=== PATIENT | male | born 1985 ===

== ENCOUNTER 2016-12-22 07:42 | Emergency (ER) | payer MEDICARE, MEDICAID ==
[2016-12-22 07:49] VITALS: BMI 29.9
[2016-12-22 07:58] VITALS: RESP 18
--- NOTE | 2016-12-22 08:03 | ED PDOC ---
Arrival/HPI - General Chief Complaint: Psychiatric Evaluation Time Seen by Provider: 12/22/16 07:43 Historian: Patient - History of Present Illness Narrative History of Present Illness (Text): 12/22/16 08:00 31 year old male with a past medical history that includes schizophrenia presents to the emergency department with difficulty sleeping and noncompliance with medications as per mother. Patient is cooperative and denies any complaints. No suicidal ideation, homicidal ideation, visual or auditory hallucinations. Symptom Course: Unchanged Modifying Factors (Text): None Associated Symptoms (Text): None Past Medical History - Provider Review Nursing Documentation Reviewed: Yes - Infectious Disease Hx of Infectious Diseases: None - Cardiac Hx Hypertension: Yes - Pulmonary Hx Tuberculosis: No - Neurological HX Cerebrovascular Accident: No Hx Seizures: No - Hematological/Oncological Hx Cancer: No - Genitourinary/Gynecological Hx Sexually Transmitted Diseases: No - Psychiatric Hx Schizophrenia: Yes Hx Substance Use: No - Anesthesia Hx Anesthesia: No Hx Anesthesia Reactions: No Hx Malignant Hyperthermia: No Family/Social History - Physician Review Nursing Documentation Reviewed: Yes Family/Social History: Unknown Family HX Smoking Status: Never Smoked Hx Alcohol Use: No Hx Substance Use: No Allergies/Home Meds Allergies/Adverse Reactions: Allergies Penicillins Allergy (Mild, Verified 05/01/16 13:01) RASH Review of Systems - Physician Review All systems were reviewed & negative as marked: Yes - Review of Systems Respiratory: absent: SOB Cardiovascular: absent: Chest Pain Gastrointestinal: absent: Abdominal Pain Psychiatric: Other (Difficulty sleeping. No suicidal ideation, homicidal ideation, or visual/auditory hallucinations.). absent: Suicidal Ideation Physical Exam Vital Signs Reviewed: Yes Vital Signs Temp Pulse Resp BP Pulse Ox 12/22/16 09:53 98.3 F 90 18 126/73 97 12/22/16 07:57 98.0 F 89 18 130/75 96 Temperature: Afebrile Blood Pressure: Normal Pulse: Regular Respiratory Rate: Normal Appearance: Positive for: Well-Appearing, Non-Toxic, Comfortable Pain Distress: None Mental Status: Positive for: Alert and Oriented X 3 - Systems Exam Head: Present: Atraumatic, Normocephalic Pupils: Present: PERRL Extroacular Muscles: Present: EOMI Conjunctiva: Present: Normal Mouth: Present: Moist Mucous Membranes Neck: Present: Normal Range of Motion Respiratory/Chest: Present: Clear to Auscultation, Good Air Exchange. No: Respiratory Distress, Accessory Muscle Use Cardiovascular: Present: Regular Rate and Rhythm, Normal S1, S2. No: Murmurs Abdomen: Present: Normal Bowel Sounds. No: Tenderness, Distention, Peritoneal Signs Back: Present: Normal Inspection Upper Extremity: Present: Normal Inspection. No: Cyanosis, Edema Lower Extremity: Present: Normal Inspection. No: Edema Neurological: Present: GCS=15, CN II-XII Intact, Speech Normal Skin: Present: Warm, Dry, Normal Color. No: Rashes Psychiatric: Present: Alert, Oriented x 3, Normal Insight, Normal Concentration Medical Decision Making ED Course and Treatment: Impression: 31 year old male with a past medical history that includes schizophrenia presents to the emergency department with difficulty sleeping and noncompliance with medications as per mother. Plan: -- Medically clear for PES evaluation -- Reassess and disposition Progress Notes: 12/22/16 08:43 EKG shows NSR at 86 BPM, LVH. Interpreted by me. 12/22/16 11:27 Patient evaluated and cleared by PES. - Lab Interpretations Lab Results: 12/22/16 08:02 12/22/16 08:02 Lab Results 12/22/16 08:02: WBC 5.8, RBC 4.76, Hgb 14.2, Hct 41.8 L, MCV 87.8, MCH 29.8, MCHC 34.0, RDW 13.4, Plt Count 147, MPV 12.3 H, Gran % 65.5, Lymph % (Auto) 26.2 , [place] % (Auto) 7.5 H, Eos % (Auto) 0.3 L, Baso % (Auto) 0.5, Gran # 3.78, Lymph # 1.5, [place] # 0.4, Eos # 0.0, Baso # 0.03, Sodium 137, Potassium 4.0, Chloride 98, Carbon Dioxide 30, Anion Gap 13, BUN 14, Creatinine 0.9, Est GFR ( Amer) > 60, Est GFR (Non-Af Amer) > 60, Random Glucose 94, Calcium 9.3, Total Bilirubin 0.7, AST 27, ALT 21, Alkaline Phosphatase 65, Total Protein 8.4 H, Albumin 4.6, Globulin 3.8, Albumin/Globulin Ratio 1.2, Salicylates < 1 L, Acetaminophen < 10.0 L, Alcohol, Quantitative < 10 12/22/16 08:00: Urine Color Light yellow, Urine Appearance Clear, Urine pH 6.5, Ur Specific [place] 1.010, Urine Protein Negative, Urine Glucose (UA) Negative, Urine Ketones Negative, Urine Blood Negative, Urine Nitrate Negative, Urine Bilirubin Negative, Urine Urobilinogen 1.0 H, Ur Leukocyte Esterase Negative - RAD Interpretation Radiology Orders: 12/22/16 08:00 CHEST PORTABLE [RAD] Stat - EKG Interpretation Interpreted by ED Physician: Yes Type: 12 lead EKG - Scribe Statement The provider has reviewed the documentation as recorded by the Cailin Saunders Provider Scribe Attestation: All medical record entries made by the Cailin were at my direction and personally dictated by me. I have reviewed the chart and agree that the record accurately reflects my personal performance of the history, physical exam, medical decision making, and the department course for this patient. I have also personally directed, reviewed, and agree with the discharge instructions and disposition. Disposition/Present on Arrival - Present on Arrival Any Indicators Present on Arrival: No History of DVT/PE: No History of Uncontrolled Diabetes: No Urinary Catheter: No History of Decub. Ulcer: No History Surgical Site Infection Following: None - Disposition Have Diagnosis and Disposition been Completed?: Yes Diagnosis: Schizophrenia Disposition: HOME/ ROUTINE Disposition Time: 10:52 Patient Problems: Current Active Problems Problem Status Diagnosed Schizophrenia Acute Condition: STABLE Discharge Instructions (ExitCare): Psychiatric Hallucinations (ED) Additional Instructions: please see your doctor. return to er with worsening symptoms or concerns. Referrals: Thalia Maguire DO [Primary Care Provider] - Follow up with primary
[2016-12-22 08:10] LABS: ADD MANUAL DIFF? NO
[2016-12-22 08:13] LABS: BASO # 0.03 K/mm3 (0.0-2.0); BASO % 0.5 % (0.0-3.0); EOS % 0.3 % (1.5-5.0); GRAN # 3.78 (1.4-6.5); GRAN % 65.5 % (50.0-68.0); HEMATOCRIT 41.8 % (42.0-52.0); LYMPH # 1.5 (1.2-3.4); LYMPH % 26.2 % (22.0-35.0); MEAN CELL VOLUME 87.8 fL (80.0-105.0); MEAN CORPUSCULAR HEMOGLOBIN 29.8 pg (25.0-35.0); MEAN PLATELET VOLUME 12.3 fl (7.0-11.0); MONO # 0.4 (0.1-0.6); MONO % 7.5 % (1.0-6.0); PLATELET COUNT 147 10^3/uL (120.0-450.0); RED CELL DISTRIBUTION WIDTH 13.4 % (11.5-14.5); WHITE BLOOD COUNT 5.8 10^3/ul (4.5-11.0)
[2016-12-22 08:29] LABS: ALB/GLOB RATIO 1.2 (1.1-1.8); ALKALINE PHOSPHATASE 65 U/L (38-133); ALT/SGPT 21 U/L (7-56); AST/SGOT 27 U/L (15-59); BILIRUBIN,TOTAL 0.7 mg/dL (0.2-1.3); BLOOD UREA NITROGEN 14 mg/dL (7-21); CALCIUM 9.3 mg/dL (8.4-10.5); CARBON DIOXIDE 30 mmol/L (21-33); CHLORIDE 98 mmol/L (98-107); GFR AFRICAN-AMERICAN > 60; GLUCOSE,RANDOM 94 mg/dL (70-110); SODIUM 137 mmol/L (132-148); TOTAL PROTEIN 8.4 g/dL (5.8-8.3)
[2016-12-22 08:30] LABS: PH,URINE 6.5 (4.7-8.0); URINE BILIRUBIN NEGATIVE (NEGATIVE); URINE BLOOD NEGATIVE (NEGATIVE); URINE GLUCOSE (UA) NEGATIVE (NEGATIVE); URINE KETONE NEGATIVE (NEGATIVE); URINE LEUKOCYTE ESTERASE NEGATIVE Leu/uL (NEGATIVE); URINE PROTEIN NEGATIVE mg/dL (<30 mg/dL)
[2016-12-22 08:31] LABS: URINE APPEARANCE CLEAR (CLEAR); URINE COLOR LIGHT YELLOW (YELLOW)
--- NOTE | 2016-12-22 09:04 | RAD ---
HISTORY: pysch COMPARISON: 04/23/2016 FINDINGS: LUNGS: No active pulmonary disease. PLEURA: No significant pleural effusion identified, no pneumothorax apparent. CARDIOVASCULAR: Normal. OSSEOUS STRUCTURES: No significant abnormalities. VISUALIZED UPPER ABDOMEN: Normal. OTHER FINDINGS: None. IMPRESSION: No active disease.
[2016-12-22 09:54] VITALS: TEMP 98.3
[2016-12-22 11:39] VITALS: BP 125/70; PULSE 85; O2SAT 99
--- NOTE | 2016-12-23 09:27 | CARD ---
APPROVED REPORT EKG Measurement Heart [id number] <Conclusion> Normal sinus rhythm with sinus arrhythmia Left ventricular hypertrophy Leftward axis No change
== END 2016-12-22 11:42 | disposition home or self-care (01) ==
LOC: ED 07:42
DX: F20.9 Schizophrenia, unspecified (principal); I10 Essential (primary) hypertension; Z88.0 Allergy status to penicillin
CPT/HCPCS: 71010; 80053; 81003; 85025; 93005; 99283; G0480

== ENCOUNTER 2017-01-06 01:49 | Inpatient (IN) | payer MEDICARE, MEDICAID ==
[2017-01-06 01:49] VITALS: BMI 29.9
--- NOTE | 2017-01-06 03:18 | ED PDOC ---
Arrival/HPI - General Chief Complaint: Psychiatric Evaluation Time Seen by Provider: 01/06/17 02:33 Historian: Patient - History of Present Illness Narrative History of Present Illness (Text): 01/06/17 03:08 31 year old male whose past medical history includes bipolar disorder and paranoid schizophrenia presents to the Emergency department [facility] for psychiatric evaluation. Patient's mother states he has 50mg risperdal injections per week. She reports he has been accusing her of changing his skin and switching out his penis and staring at the mirror while talking with tangential speech. Patient also notes difficulty sleeping. She states he was seen in the Emergency department 2 weeks ago for similar symptoms. He denies any suicidal ideation, homicidal ideation, or hallucinations. Denies any somatic complaints. Time/Duration: < month Symptom Onset: Gradual Symptom Course: Unchanged Activities at Onset: Rest Past Medical History - Provider Review Nursing Documentation Reviewed: Yes - Infectious Disease Hx of Infectious Diseases: None - Cardiac Hx Hypertension: Yes - Pulmonary Hx Tuberculosis: No - Neurological HX Cerebrovascular Accident: No Hx Seizures: No - Hematological/Oncological Hx Cancer: No - Genitourinary/Gynecological Hx Sexually Transmitted Diseases: No - Psychiatric Hx Schizophrenia: Yes Hx Substance Use: No - Anesthesia Hx Anesthesia: No Hx Anesthesia Reactions: No Hx Malignant Hyperthermia: No Family/Social History - Physician Review Nursing Documentation Reviewed: Yes Family/Social History: Unknown Family HX Smoking Status: Never Smoked Hx Alcohol Use: No Hx Substance Use: No Allergies/Home Meds Allergies/Adverse Reactions: Allergies Penicillins Allergy (Mild, Verified 01/06/17 02:15) RASH Review of Systems - Physician Review All systems were reviewed & negative as marked: Yes - Review of Systems Constitutional: absent: Fevers Respiratory: absent: SOB Cardiovascular: absent: Chest Pain Psychiatric: Other (+psychiatric evaluation; +difficulty sleeping; no SI/HI, no hallucinations). absent: Suicidal Ideation Physical Exam Vital Signs Reviewed: Yes Vital Signs Pulse Resp BP Pulse Ox 01/06/17 06:57 77 17 128/81 97 01/06/17 05:00 80 14 121/70 98 01/06/17 03:49 76 16 122/72 97 Temperature: Afebrile Blood Pressure: Normal Pulse: Regular Respiratory Rate: Normal Appearance: Positive for: Well-Appearing, Non-Toxic, Comfortable Pain Distress: None Mental Status: Positive for: Alert and Oriented X 3 - Systems Exam Head: Present: Atraumatic, Normocephalic Pupils: Present: PERRL Extroacular Muscles: Present: EOMI Conjunctiva: Present: Normal Mouth: Present: Moist Mucous Membranes Neck: Present: Normal Range of Motion Respiratory/Chest: Present: Clear to Auscultation, Good Air Exchange. No: Respiratory Distress, Accessory Muscle Use, Wheezes, Rales, Rhonchi Cardiovascular: Present: Regular Rate and Rhythm, Normal S1, S2. No: Murmurs, Rub, Gallop Abdomen: Present: Normal Bowel Sounds. No: Tenderness, Distention, Peritoneal Signs, Rebound, Guarding Back: Present: Normal Inspection Upper Extremity: Present: Normal Inspection. No: Cyanosis, Edema Lower Extremity: Present: Normal Inspection. No: Edema Neurological: Present: GCS=15, CN II-XII Intact, Speech Normal Skin: Present: Warm, Dry, Normal Color. No: Rashes Psychiatric: Present: Alert, Oriented x 3, Normal Insight, Normal Concentration Medical Decision Making ED Course and Treatment: 01/06/17 03:27 Impression: 31 year old male presents for psychiatric evaluation. Physical exam unremarkable. Plan: --EKG --Chest X-ray --Urinalysis --Labs -- Reassess and disposition Prior Visits: Notes and results from previous visits were reviewed. Progress Notes: 01/06/17 04:17 EKG: Ordered, reviewed, and independently interpreted the EKG. Rate : 63 BPM Rhythm : NSR Interpretation : minimal voltage for LVH, no acute changes 01/06/17 05:11 Chest X-ray Impression: negative, read by me 01/06/17 05:[address] Smart who accepts patient to her service. Dr. Marks on consult. - Lab Interpretations Lab Results: 01/06/17 03:35 01/06/17 03:35 Lab Results 01/06/17 04:05: Urine Color yellow, Urine Appearance Clear, Urine pH 6.0, Ur Specific [place] >= 1.030, Urine Protein Negative, Urine Glucose (UA) Negative, Urine Ketones Trace H, Urine Blood Negative, Urine Nitrate Negative, Urine Bilirubin Negative, Urine Urobilinogen 0.2, Ur Leukocyte Esterase Negative, Urine Opiates Screen Negative, Urine Methadone Screen Negative, Ur Barbiturates Screen Negative, Ur Phencyclidine Scrn Negative, Ur Amphetamines Screen Negative , U Benzodiazepines Scrn Negative, U Oth Cocaine Metabols Negative, U Cannabinoids Screen Negative 01/06/17 03:35: WBC 7.0 D, RBC 4.73, Hgb 13.8 L, Hct 41.7 L, MCV 88.2, MCH 29.2 , MCHC 33.1, RDW 13.4, Plt Count 122, MPV 13.1 H, Gran % 65.4, Lymph % (Auto) 26.8, [place] % (Auto) 7.2 H, Eos % (Auto) 0.3 L, Baso % (Auto) 0.3, Gran # 4.60, Lymph # 1.9, [place] # 0.5, Eos # 0.0, Baso # 0.02, Sodium 139, Potassium 3.7, Chloride 99, Carbon Dioxide 30, Anion Gap 14, BUN 12, Creatinine 0.9, Est GFR ( Amer) > 60, Est GFR (Non-Af Amer) > 60, Random Glucose 86, Calcium 8.9, Total Bilirubin 0.5, AST 24, ALT 14, Alkaline Phosphatase 65, Total Protein 8.5 H, Albumin 4.5, Globulin 3.9, Albumin/Globulin Ratio 1.2, Alcohol, Quantitative < 10 I have reviewed the lab results: Yes - RAD Interpretation Radiology Orders: 01/06/17 02:58 CHEST PORTABLE [RAD] Stat - Transfer of Care Patient signed out to Dr:: Kulwant Other: PES evaluation/reassess/final disposition - Scribe Statement The provider has reviewed the documentation as recorded by the Scribe Antonia Ruiz Provider Scribe Attestation: All medical record entries made by the Scribe were at my direction and personally dictated by me. I have reviewed the chart and agree that the record accurately reflects my personal performance of the history, physical exam, medical decision making, and the department course for this patient. I have also personally directed, reviewed, and agree with the discharge instructions and disposition. Disposition/Present on Arrival - Present on Arrival Any Indicators Present on Arrival: No History of DVT/PE: No History of Uncontrolled Diabetes: No Urinary Catheter: No History of Decub. Ulcer: No History Surgical Site Infection Following: None - Disposition Have Diagnosis and Disposition been Completed?: No Diagnosis: Schizophrenia Disposition Time: 07:03 Condition: STABLE
[2017-01-06 03:44] LABS: ADD MANUAL DIFF? NO
[2017-01-06 04:06] LABS: GRAN % 65.4 % (50.0-68.0); HEMATOCRIT 41.7 % (42.0-52.0); MEAN CELL VOLUME 88.2 fL (80.0-105.0); MEAN CORPUSCULAR HEMOGLOBIN 29.2 pg (25.0-35.0); MEAN CORPUSCULAR HGB CONC 33.1 g/dl (31.0-37.0); MEAN PLATELET VOLUME 13.1 fl (7.0-11.0); PLATELET COUNT 122 10^3/uL (120.0-450.0); RED CELL DISTRIBUTION WIDTH 13.4 % (11.5-14.5)
[2017-01-06 04:07] LABS: BASO # 0.02 K/mm3 (0.0-2.0); BASO % 0.3 % (0.0-3.0); EOS % 0.3 % (1.5-5.0); LYMPH # 1.9 (1.2-3.4); LYMPH % 26.8 % (22.0-35.0); MONO # 0.5 (0.1-0.6); MONO % 7.2 % (1.0-6.0)
[2017-01-06 04:16] LABS: ALB/GLOB RATIO 1.2 (1.1-1.8); ALKALINE PHOSPHATASE 65 U/L (38-133); ALT/SGPT 14 U/L (7-56); AST/SGOT 24 U/L (15-59); BILIRUBIN,TOTAL 0.5 mg/dL (0.2-1.3); BLOOD UREA NITROGEN 12 mg/dL (7-21); CALCIUM 8.9 mg/dL (8.4-10.5); CARBON DIOXIDE 30 mmol/L (21-33); CHLORIDE 99 mmol/L (98-107); GFR AFRICAN-AMERICAN > 60; GLUCOSE,RANDOM 86 mg/dL (70-110); POTASSIUM 3.7 mmol/L (3.6-5.0); SODIUM 139 mmol/L (132-148); TOTAL PROTEIN 8.5 g/dL (5.8-8.3)
[2017-01-06 04:21] LABS: URINE BILIRUBIN NEGATIVE (NEGATIVE); URINE BLOOD NEGATIVE (NEGATIVE); URINE GLUCOSE (UA) NEGATIVE (NEGATIVE); URINE KETONE TRACE mg/dL (NEGATIVE); URINE LEUKOCYTE ESTERASE NEGATIVE Leu/uL (NEGATIVE); URINE UROBILINOGEN 0.2 E.U./dL (<1 E.U./dL)
[2017-01-06 04:25] LABS: URINE APPEARANCE CLEAR (CLEAR); URINE PROTEIN NEGATIVE mg/dL (<30 mg/dL)
--- NOTE | 2017-01-06 07:11 | ED PDOC ---
Physical Exam Vital Signs Pulse Resp BP Pulse Ox 01/06/17 06:57 77 17 128/81 97 01/06/17 05:00 80 14 121/70 98 01/06/17 03:49 76 16 122/72 97 Medical Decision Making ED Course and Treatment: 01/06/17 07:00 Patient signed out to me by Dr. Coleman pending PES evaluation, reassessment , and final disposition. 01/06/17 08:08 pt accepted to pes. - Lab Interpretations Lab Results: 01/06/17 03:35 01/06/17 03:35 Lab Results 01/06/17 04:05: Urine Color yellow, Urine Appearance Clear, Urine pH 6.0, Ur Specific [place] >= 1.030, Urine Protein Negative, Urine Glucose (UA) Negative, Urine Ketones Trace H, Urine Blood Negative, Urine Nitrate Negative, Urine Bilirubin Negative, Urine Urobilinogen 0.2, Ur Leukocyte Esterase Negative, Urine Opiates Screen Negative, Urine Methadone Screen Negative, Ur Barbiturates Screen Negative, Ur Phencyclidine Scrn Negative, Ur Amphetamines Screen Negative , U Benzodiazepines Scrn Negative, U Oth Cocaine Metabols Negative, U Cannabinoids Screen Negative 01/06/17 03:35: WBC 7.0 D, RBC 4.73, Hgb 13.8 L, Hct 41.7 L, MCV 88.2, MCH 29.2 , MCHC 33.1, RDW 13.4, Plt Count 122, MPV 13.1 H, Gran % 65.4, Lymph % (Auto) 26.8, [place] % (Auto) 7.2 H, Eos % (Auto) 0.3 L, Baso % (Auto) 0.3, Gran # 4.60, Lymph # 1.9, [place] # 0.5, Eos # 0.0, Baso # 0.02, Sodium 139, Potassium 3.7, Chloride 99, Carbon Dioxide 30, Anion Gap 14, BUN 12, Creatinine 0.9, Est GFR ( Amer) > 60, Est GFR (Non-Af Amer) > 60, Random Glucose 86, Calcium 8.9, Total Bilirubin 0.5, AST 24, ALT 14, Alkaline Phosphatase 65, Total Protein 8.5 H, Albumin 4.5, Globulin 3.9, Albumin/Globulin Ratio 1.2, Alcohol, Quantitative < 10 - RAD Interpretation Radiology Orders: 01/06/17 02:58 CHEST PORTABLE [RAD] Stat Disposition/Present on Arrival - Present on Arrival Any Indicators Present on Arrival: No History of DVT/PE: No History of Uncontrolled Diabetes: No Urinary Catheter: No History of Decub. Ulcer: No History Surgical Site Infection Following: None - Disposition Have Diagnosis and Disposition been Completed?: Yes Diagnosis: Schizophrenia Disposition: HOSPITALIZED Disposition Time: 08:08 Patient Problems: Current Active Problems Problem Status Diagnosed Schizophrenia Acute Condition: STABLE
[2017-01-06] MEDS ORDERED: Alum-Mag Hydrox-Simethicone Susp (30 mL) PO PRN (11:22)
[2017-01-06] MEDS ORDERED: Magnesium Hydroxide Susp 30 ml UD PO PRN (11:22)
[2017-01-06 12:18] VITALS: O2SAT 93
--- NOTE | 2017-01-06 12:45 | CARD ---
APPROVED REPORT EKG Measurement Heart [id number] <Conclusion> Normal sinus rhythm Minimal voltage criteria for LVH, may be normal variant Borderline ECG
--- NOTE | 2017-01-06 13:11 | RAD ---
HISTORY: medical clearance COMPARISON: No prior. FINDINGS: LUNGS: No active pulmonary disease. PLEURA: No significant pleural effusion identified, no pneumothorax apparent. CARDIOVASCULAR: Normal. OSSEOUS STRUCTURES: No significant abnormalities. VISUALIZED UPPER ABDOMEN: Normal. OTHER FINDINGS: None. IMPRESSION: No active disease.
[2017-01-07 08:25] LABS: ADD MANUAL DIFF? NO
[2017-01-07 08:30] LABS: BASO # 0.02 K/mm3 (0.0-2.0); BASO % 0.4 % (0.0-3.0); EOS % 0.2 % (1.5-5.0); GRAN # 2.74 (1.4-6.5); GRAN % 56.8 % (50.0-68.0); LYMPH # 1.7 (1.2-3.4); LYMPH % 35.6 % (22.0-35.0); MEAN CELL VOLUME 87.2 fL (80.0-105.0); MEAN CORPUSCULAR HEMOGLOBIN 29.4 pg (25.0-35.0); MEAN CORPUSCULAR HGB CONC 33.7 g/dl (31.0-37.0); MEAN PLATELET VOLUME 12.3 fl (7.0-11.0); MONO # 0.3 (0.1-0.6); PLATELET COUNT 145 10^3/uL (120.0-450.0); WHITE BLOOD COUNT 4.8 10^3/ul (4.5-11.0)
[2017-01-07 08:42] LABS: ALB/GLOB RATIO 1.3 (1.1-1.8); ALKALINE PHOSPHATASE 53 U/L (38-133); ALT/SGPT 23 U/L (7-56); AST/SGOT 29 U/L (15-59); BILIRUBIN,TOTAL 0.8 mg/dL (0.2-1.3); BLOOD UREA NITROGEN 10 mg/dL (7-21); CALCIUM 9.2 mg/dL (8.4-10.5); CARBON DIOXIDE 29 mmol/L (21-33); CHLORIDE 100 mmol/L (98-107); CHOLESTEROL 136 mg/dL (130-200); GFR AFRICAN-AMERICAN > 60; GLUCOSE,RANDOM 87 mg/dL (70-110); POTASSIUM 3.7 mmol/L (3.6-5.0); SODIUM 138 mmol/L (132-148)
[2017-01-07 08:57] LABS: FREE T4 0.92 ng/dL (0.78-2.19)
[2017-01-07 09:11] LABS: THYROID STIMULATING HORMONE 3.36 mIU/mL (0.46-4.68)
--- NOTE | 2017-01-07 09:29 | PCM.PSYCH ---
Initial Psychiatric Evaluation - Initial Psychiatric Evaluation Type of Admission: Voluntary Legal Status: Capacity History of Present Illness and Precipitating Events: Patient is a 31 yo male with hx of Paranoid Schizophrenia, catatonic behaviors, multiple psychiatric admissions, current f/u at [facility] where he is compliant with Risperdal Consta 50 mg IM q2 weeks who was BIBA for a psychiatric evaluation. Review of ER records indicate that mother reported that patient has been delusional with poor sleep. Patient accused mother of "changing his skin and switching out his penis". Apparently he was seen in this ER on 12/22/16 with symptoms of noncompliance and difficulty sleeping and discharged to f/u with psychiatric provider. I reviewed recent notes and met with patient at bedside. Patient is superficially cooperative and with fair focus and intermittent eye contact. I agree with staff notes, patient does exhibit some thought blocking and speech latency with his responses. Presently patient denies any major concerns including depression and anxiety. He states that he "doesn't feel paranoid". Regarding stressors he points to his groin area, indicating concern about his genitals. He cannot elaborate in a logical manner about this concern. He appears guarded. Patient denies any hallucinations and he is not observed to be responding to internal stimuli during our meeting. Affect is flat and oddly- related. Thus far he is tolerating his current medications and reports that he slept fairly well last night. He denies any new discomfort or pain. Insight and judgment are considered poor at this time. He has been in fair behavioral control and there were no management issues overnight . PSYCHIATRIC HISTORY 2 admissions at [facility] (03/13/16/-03/23/16 & 04/24/16-05/05/16) Discharged 05/05/16 on following medications: Risperdal consta 50mg im [id number], risperdal 2mg po bid for psychosis, ativan 2mg po bid for catatonia, ambien 5mg hs for insomnia Patient follows up at [facility] and reports that he follows up with Dr. De Leon. He receives the Risperdal Consta injection 50 mg q2 weeks. Most recent injection was on December 26. Social history Patient was born and raised in the [place] until he was 12 years old. Thereafter he was raised in the [place]. Patient is single and does not have children. He resides with his mother. Patient reports that he did not graduate high school. He went as far as 11th grade. He is unemployed. Patient denies any drug or alcohol issues. Denies tobacco use and denies any history of legal issues. Current Medications: Active Medications Generic Name Dose Route Start Last Admin Trade Name Freq PRN Reason Stop Dose Admin Acetaminophen 650 mg 01/06/17 11:22 Tylenol 325mg Tab PO Q4H PRN Pain, moderate (4-7) Al Hydrox/Mg Hydrox/Simethicone 30 ml 01/06/17 11:22 Maalox Plus 30 Ml PO DAILY PRN Indigestion / Heartburn Magnesium Hydroxide 30 ml 01/06/17 11:22 Milk Of Magnesia PO DAILY PRN Constipation Zaleplon 10 mg 01/06/17 11:39 Sonata PO HS PRN Insomnia Past Psychiatric History - Past Psychiatric History Pertinent Medical Hx (Current Medical&Sleep Prob, Allergies): Allergies Allergy/AdvReac Type Severity Reaction Status Date / Time Penicillins Allergy Mild RASH Verified 01/06/17 02:15 Atorvastatin [Lipitor] 40 mg PO DIN #0 tab 05/05/16 Cholecalciferol [Vitamin D 1000 IU] 2,000 iu PO DAILY #0 tab 05/05/16 LORazepam [Ativan] 2 mg PO BID #0 tab 05/05/16 Propranolol [Inderal] 10 mg PO HS #0 tab 05/05/16 Risperidone [RisperDAL Consta] 50 mg IM Q2W #1 syr 05/05/16 Zolpidem [Ambien] 5 mg PO HS PRN #0 tab 05/05/16 risperiDONE [RisperDAL Tab] 2 mg PO AMHS #0 tab 05/05/16 Mental Status Examination - Personal Presentation Personal Presentation: Looks stated age - Affect Affect: Constricted - Motor Activity Motor Activity: Calm - Reliability in Providing Information Reliability in Providing Information: Fair - Formal Thought Process Formal Thought Process: Delusions, Paranoia, Loosening of associations, Other ( thought blocking) - Obsessions/Compulsions Obsessions: No Compulsions: No - Cognitive Functions Orientation: Person, Place, Situation Sensorium: Alert Estimate of Intelligence: Average Judgement: Imparied, as evidence by: Poor judgement, Imparied, as evidence by: Lack of insight into illness - Risk Risk: Diminished functioning DSM 5 DX - DSM 5 DSM 5 Diagnosis: Paranoid Schizophrenia - Recommended/Plan of Treatment Treatment Recommendations and Plan of Treatment: * group, milieu and supportive tx * Risperdal Consta 50 mg IM due January 09, 2017 * Started Ativan 1 mg po AMHS to aid with catatonia/thought blocking * c/w Sonata 10 mg HS prn: insomnia * Awaiting medical consult * Vitals reviewed and noted below: Selected Entries 01/06/17 01/06/17 07:42 10:00 Temperature 98.1 F 98.1 F Pulse Rate 72 79 Respiratory 18 22 Rate Blood Pressure 125/76 124/79 FLOOR LABS NOTED BELOW Laboratory Results - last 24 hr 01/07/17 08:23 WBC 4.8 D RBC 4.93 Hgb 14.5 Hct 43.0 MCV 87.2 MCH 29.4 MCHC 33.7 RDW 13.0 Plt Count 145 MPV 12.3 H Gran % 56.8 Lymph % (Auto) 35.6 H [place] % (Auto) 7.0 H Eos % (Auto) 0.2 L Baso % (Auto) 0.4 Gran # 2.74 Lymph # 1.7 [place] # 0.3 Eos # 0.0 Baso # 0.02 Sodium 138 Potassium 3.7 Chloride 100 Carbon Dioxide 29 Anion Gap 13 BUN 10 Creatinine 0.8 Est GFR ( Amer) > 60 Est GFR (Non-Af Amer) > 60 Random Glucose 87 Calcium 9.2 Total Bilirubin 0.8 AST 29 ALT 23 Alkaline Phosphatase 53 Total Protein 8.0 Albumin 4.5 Globulin 3.5 Albumin/Globulin Ratio 1.3 Triglycerides 68 Cholesterol 136 LDL Cholesterol Direct 74 HDL Cholesterol 41 Free T4 0.92 TSH 3rd Generation 3.36 ER LABS AND STUDIES 01/06/17 04:05: Urine Color yellow, Urine Appearance Clear, Urine pH 6.0, Ur Specific [place] >= 1.030, Urine Protein Negative, Urine Glucose (UA) Negative, Urine Ketones Trace H, Urine Blood Negative, Urine Nitrate Negative, Urine Bilirubin Negative, Urine Urobilinogen 0.2, Ur Leukocyte Esterase Negative, Urine Opiates Screen Negative, Urine Methadone Screen Negative, Ur Barbiturates Screen Negative, Ur Phencyclidine Scrn Negative, Ur Amphetamines Screen Negative , U Benzodiazepines Scrn Negative, U Oth Cocaine Metabols Negative, U Cannabinoids Screen Negative 01/06/17 03:35: WBC 7.0 D, RBC 4.73, Hgb 13.8 L, Hct 41.7 L, MCV 88.2, MCH 29.2 , MCHC 33.1, RDW 13.4, Plt Count 122, MPV 13.1 H, Gran % 65.4, Lymph % (Auto) 26.8, [place] % (Auto) 7.2 H, Eos % (Auto) 0.3 L, Baso % (Auto) 0.3, Gran # 4.60, Lymph # 1.9, [place] # 0.5, Eos # 0.0, Baso # 0.02, Sodium 139, Potassium 3.7, Chloride 99, Carbon Dioxide 30, Anion Gap 14, BUN 12, Creatinine 0.9, Est GFR ( Amer) > 60, Est GFR (Non-Af Amer) > 60, Random Glucose 86, Calcium 8.9, Total Bilirubin 0.5, AST 24, ALT 14, Alkaline Phosphatase 65, Total Protein 8.5 H, Albumin 4.5, Globulin 3.9, Albumin/Globulin Ratio 1.2, Alcohol, Quantitative < 10 01/06/17 04:17 EKG: Ordered, reviewed, and independently interpreted the EKG. Rate : 63 BPM Rhythm : NSR Interpretation : minimal voltage for LVH, no acute changes 01/06/17 05:11 Chest X-ray Impression: negative - Smoking Cessation Smoking Cessation Initiated: No Reason for not providing: PATIENT IS NOT A TOBACCO USER
--- NOTE | 2017-01-07 21:52 | CON ---
DATE: 01/07/2017 CHIEF COMPLAINT: Psych evaluation and toenail infection. HISTORY OF PRESENT ILLNESS: The patient is a 31-year-old male with past medical history of bipolar and paranoid schizophrenia. Came to the Emergency Room for psych evaluation. The patient's mother states that he had 50 mg respirdal injection about a week. She reports that he has been accusing her of changing his skin and switching out his penis and starting loud while talking . The patient also noticed difficulty in sleeping. She states that he has been in the Emergency Room 2 weeks ago for similar complaints. He denies any suicidal or homicidal ideation, hallucination. Denies any symmetrical complaints but having fungus on the toenails. PAST MEDICAL HISTORY: Hypertension, insomnia, schizophrenia. ALLERGIES: THE PATIENT IS ALLERGIC WITH PENICILLIN. FAMILY HISTORY: Father and mother noncontributory, schizophrenia. HABITS: Never smoked, no drugs, no ethanol. MEDICATIONS: Reviewed by me. REVIEW OF SYSTEMS: The patient was seen and examined in his room in the presence of a nurseBrian. Feeling comfortable except complaining about fungus on the toenails. According to him, he was taking medicine. No fever, no chills. No nausea, vomiting, diarrhea. No hematuria or hematochezia. No swelling of the leg. No chest pain, no palpitation. PHYSICAL EXAMINATION: VITAL SIGNS: Temperature 98.1, pulse 57, blood pressure 117/76, respiratory rate 22. HEENT: Head normocephalic, atraumatic. Eyes PERRLA. Extraocular muscles intact. Conjunctivae pink. Eyelids unremarkable. Nose patent. Mucous membranes moist. NECK: Supple. No carotid bruits. No JVD or thyromegaly. CHEST: Bilaterally symmetrical. HEART: S1, S2 positive. LUNGS: Clear to auscultation. ABDOMEN: Soft. Bowel sounds present. No organomegaly. EXTREMITIES: No edema, no cyanosis. Toenails are white. NEUROLOGIC: The patient is awake, alert, moving all 4 extremities. No focal deficits. LABORATORY DATA: White blood cells noted , hemoglobin 14.5, hematocrit 43.0, platelets 145. Sodium 138, potassium 3.7, BUN 10, creatinine 0.8, glucose 87. TSH 3.36. Urine has trace of ketones. RPR negative. Blood screening is negative. ASSESSMENT AND PLAN: The patient is a 31-year-old male with history of anemia, got better; ketonuria, hypertension, tinea pedis, history of schizophrenia. Is seen on psych department. Podiatry consult called for patient's tinea pedis. Gastrointestinal and deep vein thrombosis prophylaxis. Chest x-ray negative. EKG, heart rate 63 BPM, NSR, minimal voltage of left ventricular hypertrophy with no acute changes. We will follow up. Nesha Smart MD cc: [id number] TT: 01/07/2017 21:52:23 Confirmation # [id number] Dictation # [id number]
--- NOTE | 2017-01-08 16:03 | CP.PCM.CON ---
<Jon Benton - Last Filed: 01/08/17 15:56> History of Present Illness - History of Present Illness History of Present Illness: 31 year old male patient with PMHx of paranoid schizophrenia was seen at bedside this afternoon after request for podiatry consultation. Patient presents with mycotic toenail to Left hallux. Patient states that he has been treated for the fungal nail by Dr. Maguire, his PMD. He states that the mycotic nail was noticed months ago and he is taking terbinafine at home prescribed by her PMD. Patient denies of any pain to the Left hallux or any other pedal complaints. Patient denies of any N/V/F/C/ or SOB today Past Patient History - Infectious Disease Hx of Infectious Diseases: None - Past Social History Smoking Status: Never Smoked - CARDIAC Hx Cardiac Disorders: No Hx Hypertension: No (patient and mother deny) - PULMONARY Hx Respiratory Disorders: No Hx Tuberculosis: No - NEUROLOGICAL Hx Neurological Disorder: No HX Cerebrovascular Accident: No Hx Seizures: No - HEENT Hx HEENT Problems: No - RENAL Hx Chronic Kidney Disease: No - ENDOCRINE/METABOLIC Hx Endocrine Disorders: No - HEMATOLOGICAL/ONCOLOGICAL Hx Blood Disorders: No Hx Cancer: No Hx Human Immunodeficiency Virus (HIV): No - INTEGUMENTARY Hx Dermatological Problems: No Other/Comment: Patient c/o fungal infection in right big toe and being treated with Terbinafine (both patient and mother confirmed). 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 - PSYCHIATRIC Hx Schizophrenia: Yes Hx Substance Use: No - SURGICAL HISTORY Hx Surgeries: No - ANESTHESIA Hx Anesthesia: No Hx Anesthesia Reactions: No Hx Malignant Hyperthermia: No Meds Allergies/Adverse Reactions: Allergies Allergy/AdvReac Type Severity Reaction Status Date / Time Penicillins Allergy Mild RASH Verified 01/08/17 00:13 - Medications Medications: Current Medications Acetaminophen (Tylenol 325mg Tab) 650 mg PO Q4H PRN PRN Reason: Pain, moderate (4-7) Al Hydrox/Mg Hydrox/Simethicone (Maalox Plus 30 Ml) 30 ml PO DAILY PRN PRN Reason: Indigestion / Heartburn Famotidine (Pepcid) 40 mg PO HS RIO Last Admin: 01/07/17 22:00 Dose: Not Given Lorazepam (Ativan) 1 mg PO AMHS RIO PRN Reason: Protocol Last Admin: 01/08/17 09:08 Dose: 1 mg Magnesium Hydroxide (Milk Of Magnesia) 30 ml PO DAILY PRN PRN Reason: Constipation Risperidone (Risperdal Tab) 0.5 mg PO AMHS RIO PRN Reason: Protocol Trazodone HCl (Desyrel) 50 mg PO HS [facility] Physical Exam - Constitutional Appears: Well, Non-toxic, No Acute Distress - Extremities Exam Additional comments: Bilateral lower extremities exam DERM: No open wound noted to bilateral lower extremities. Thickened, mycotic toenail noted to Left hallux nail. (x1) No erythema noted. No drainage, no clinical sign of acute infection is noted. VASC: Palpable DP and PT noted bilaterally 2/4, WAGE CONCILIATOR less than 3 seconds noted to all digits NEURO: Gross sensation intact b/l lower extremities ORTHO: No pain on palpation to joints distal do ankle joint. ROM to ankle, 1st MPJ joints appears to be within normal range. - Neurological Exam Neurological exam: Alert, Oriented x3 - Psychiatric Exam Psychiatric exam: Normal Affect, Normal Mood - Skin Skin Exam: Normal Color, Warm Results - Vital Signs Recent Vital Signs: Last Vital Signs Temp 98.0 F 01/08/17 07:59 Pulse 64 01/08/17 07:59 Resp 20 01/08/17 07:59 BP 119/70 01/08/17 07:59 Pulse Ox 93 L 01/06/17 10:00 - Labs Result Diagrams: 01/07/17 08:23 01/07/17 08:23 Labs: Laboratory Results - last 24 hr 01/07/17 08:23 Hemoglobin A1c 5.1 RPR Nonreactive Assessment & Plan - Assessment and Plan (Free Text) Assessment: 31 year old male patient presents with fungal toenail to Left hallux toenail, being treated by her PMD with oral medication Plan: Patient was seen, evaluated at bedside Psych labs and vitals reviewed discussed with attending Dr. Soliz Patient on Terbinafine PO 250mg Rx by PMD Patient was advised to follow up with his PMD for continued treatment of Mycotic left hallux toenail podiatry will sign off Thank you for the opportunity to treat this patient <Estefani Soliz Last Filed: 01/26/17 12:51> Results - Vital Signs Recent Vital Signs: Last Vital Signs Temp 98.3 F 01/12/17 07:28 Pulse 80 01/12/17 07:28 Resp 20 01/12/17 07:28 BP 121/82 01/12/17 07:28 Pulse Ox 93 L 01/06/17 10:00 - Labs Result Diagrams: 01/07/17 08:23 01/07/17 08:23 Attending/Attestation - Attestation I have personally seen and examined this patient.: Yes I have fully participated in the care of the patient.: Yes I have reviewed all pertinent clinical information: Yes
--- NOTE | 2017-01-08 16:08 | PCM.PYCHPN ---
Psychiatric Progress Note - Psychiatric Progress Note Patient seen today, length of contact: 30min Patient Chief Complaint: "my mother is changing my skin, she also was doing something with my face was different when I looked at my face in the mirror, ....., may be my mother did something, may be not, I was looking into my private part, white spot , in scrotum Problems Identified/Issues Discussed: Suicide/ homicide prevention, past psychiatric h/o, current psychiatric symptoms , medical problems, risk/benefits and alternatives of medications, medications compliance, coping strategies, substance abuse h/o, relapse prevention, importance of follow up with psychiatrist and therapist, discharge plan. Medical Problems: patient is obese Diagnostic Results: 01/07/17 08:23 01/07/17 08:23 Lab Results 01/07/17 08:23: WBC 4.8 D, RBC 4.93, Hgb 14.5, Hct 43.0, MCV 87.2, MCH 29.4, MCHC 33.7, RDW 13.0, Plt Count 145, MPV 12.3 H, Gran % 56.8, Lymph % (Auto) 35.6 H, [place] % (Auto) 7.0 H, Eos % (Auto) 0.2 L, Baso % (Auto) 0.4, Gran # 2.74 , Lymph # 1.7, [place] # 0.3, Eos # 0.0, Baso # 0.02, Sodium 138, Potassium 3.7, Chloride 100, Carbon Dioxide 29, Anion Gap 13, BUN 10, Creatinine 0.8, Est GFR ( Amer) > 60, Est GFR (Non-Af Amer) > 60, Random Glucose 87, Hemoglobin A1c 5.1, Calcium 9.2, Total Bilirubin 0.8, AST 29, ALT 23, Alkaline Phosphatase 53, Total Protein 8.0, Albumin 4.5, Globulin 3.5, Albumin/Globulin Ratio 1.3, Triglycerides 68, Cholesterol 136, LDL Cholesterol Direct 74, HDL Cholesterol 41 , Free T4 0.92, TSH 3rd Generation 3.36, RPR Nonreactive 01/06/17 04:05: Urine Color yellow, Urine Appearance Clear, Urine pH 6.0, Ur Specific [place] >= 1.030, Urine Protein Negative, Urine Glucose (UA) Negative, Urine Ketones Trace H, Urine Blood Negative, Urine Nitrate Negative, Urine Bilirubin Negative, Urine Urobilinogen 0.2, Ur Leukocyte Esterase Negative, Urine Opiates Screen Negative, Urine Methadone Screen Negative, Ur Barbiturates Screen Negative, Ur Phencyclidine Scrn Negative, Ur Amphetamines Screen Negative , U Benzodiazepines Scrn Negative, U Oth Cocaine Metabols Negative, U Cannabinoids Screen Negative 01/06/17 03:35: WBC 7.0 D, RBC 4.73, Hgb 13.8 L, Hct 41.7 L, MCV 88.2, MCH 29.2 , MCHC 33.1, RDW 13.4, Plt Count 122, MPV 13.1 H, Gran % 65.4, Lymph % (Auto) 26.8, [place] % (Auto) 7.2 H, Eos % (Auto) 0.3 L, Baso % (Auto) 0.3, Gran # 4.60, Lymph # 1.9, [place] # 0.5, Eos # 0.0, Baso # 0.02, Sodium 139, Potassium 3.7, Chloride 99, Carbon Dioxide 30, Anion Gap 14, BUN 12, Creatinine 0.9, Est GFR ( Amer) > 60, Est GFR (Non-Af Amer) > 60, Random Glucose 86, Calcium 8.9, Total Bilirubin 0.5, AST 24, ALT 14, Alkaline Phosphatase 65, Total Protein 8.5 H, Albumin 4.5, Globulin 3.9, Albumin/Globulin Ratio 1.2, Alcohol, Quantitative < 10 Temp Pulse Resp BP Pulse Ox 98.0 F 64 20 119/70 93 L 01/08/17 07:59 01/08/17 07:59 01/08/17 07:59 01/08/17 07:59 01/06/17 10:00 DSM 5 Symptoms Update: Patient is a 31 yo male with hx of Paranoid Schizophrenia, catatonic behaviors, multiple psychiatric admissions, current f/u at [facility] where he is compliant with Risperdal Consta 50 mg IM q2 weeks who was BIBA for a psychiatric evaluation. Review of ER records indicate that mother reported that patient has been delusional with poor sleep. Patient accused mother of "changing his skin and switching out his penis". Apparently he was seen in this ER on 12/22/16 with symptoms of noncompliance and difficulty sleeping and discharged to f/u with psychiatric provider. was seen and examined today at the treatment team meeting, presented to have fair personal hygiene, good ADLs. Patient presented to have psychotic symptoms, some catatonia, had difficult to to express himself, had circumstantial and tangential thought process, patient also presented to have severe thought blocking. Patient is poor and unreliable historian, reported that his mother called 911 because of unknown reasons, patient reported that he was looking at his face and was feeling that his face was changing, had difficulties progress in what way, patient was asked about his statement in the emergency room Patient accused mother of "changing his skin and switching out his penis" patient denied ever saying such things. At the same time patient refused to give consent to give a call to his mother for collateral information. Patient had history of feeling that people are poisoning his food, denied That feelings at the moment of interview. this adjusto writer operator called to the [facility] pharmacy to confirm medications [phone] Patient was on trazodone 50 mg at the nighttime field 12/29/2016 Risperdal Consta 50 mg every 2 weeks last dose was in 27 of December. next dose January 10. pt tolerates medications well, denied any side effects, none was observed or reported. Aims 0 no EPS. Impression: paranoid schizophrenia with catatonia Medication Change: Yes (Risperdal by mouth initiated, trazodone resumed) Medical Record Reviewed: Yes Consults ordered or reviewed: medical consult was called Mental Status Examination - Cognitive Function Orientation: Person, Place, Situation Memory: Impaired Attention: Poor Concentration: Poor Association: Loose Fund of Knowledge: Poor - Mood Mood: Depressed - Affect Affect: Constricted - Formal Thought Process Formal Thought Process: Delusions, Paranoia, Loosening of associations, Other ( thought blocking) - Suicidal Ideation Suicidal Ideation: No - Homicidal Ideation Homicidal Ideation: No Goal/Treatment Plan - Goal/Treatment Plan Need for Continued Stay: Remain at risks for inpatient hospitalization, Severe depression anxiety, Discharge may exacerbated symptoms, Severe functional impairment Progress Toward Problem(s) and Goals/Treatment Plan: milieu, structure, supportive therapy Will call his mother for collateral if patient will give permission We'll continue Risperdal Consta 50 mg next dose will be January 10 We'll start Risperdal 0.5 mg twice a day for psychosis Trazodone will be resumed 50 mg at the nighttime we'll continue Ativan 1 mg twice a day at the morning time at the nighttime for catatonia drop board worker evaluation We'll monitor closely Estimated Date of D/C: 01/15/17 (monitor closely) - Smoking Cessation Smoking Cessation Initiated: No Reason for not providing: patient doesn't smoke
--- NOTE | 2017-01-08 18:59 | PN ---
DATE: 01/08/2017 SUBJECTIVE: The patient seen and examined on the bedside. Looks comfortable. Complaining of gaseous stomach. Fungus on the nail. No nausea, vomiting, or diarrhea. No hematuria, no hematochezia. No fever, no chills, no swelling of the legs. No headache, no dizziness. PHYSICAL EXAMINATION: VITAL SIGNS: Temperature 98.0, pulse 80, blood pressure 120 /70, respiratory rate 20. HEAD: Normocephalic, atraumatic. EYES: PERRLA. Extraocular muscles intact. Conjunctivae are clear. Eyelids unremarkable. Nose patent. Mucous membranes moist. NECK: Supple. No carotid bruit, JVD or thyromegaly. CHEST: Bilaterally symmetrical. HEART: S1, S2 positive. LUNGS: Clear to auscultation. ABDOMEN: Soft. Bowel sounds positive. No organomegaly. EXTREMITIES: No edema, no cyanosis. NEUROLOGIC: The patient is awake, alert, moving all 4 extremities. No focal deficits. MEDICATIONS: Ativan, trazodone, Maalox, milk of magnesia, famotidine, Pepcid, Risperdal, Tylenol. LABORATORY DATA: White blood cells 4.8, hemoglobin 14.5, hematocrit 43.0, and platelets 145. Sodium 138, potassium 3.7, BUN 10, creatinine 0.8. TSH 3.36. Cholesterol is within normal limits. ASSESSMENT AND PLAN: The patient is a 31-year-old male who came with depression , bipolar, gastroesophageal reflux disease, dyspepsia, paranoid schizophrenia, has mycotic toenails of the left hallux. The patient was getting treatment from , his primary care physician, terbinafine. Now podiatry consult is called; appreciated their help. The patient is on terbinafine p.o. 250 mg. The patient advised to follow up with his PMD to continue treatment of mycotic left hallux toenail. Continue present treatment. Gastrointestinal and deep venous thrombosis prophylaxis. Repeat labs. Will follow up. Nesha Smart MD cc: [id number] TT: 01/08/2017 18:58:51 Confirmation # [id number] Dictation # [id number] mn URI
--- NOTE | 2017-01-09 16:24 | PCM.PYCHPN ---
Psychiatric Progress Note - Psychiatric Progress Note Patient seen today, length of contact: 30min Patient Chief Complaint: "my mother is changing my skin, I feel better" Problems Identified/Issues Discussed: Suicide/ homicide prevention, past psychiatric h/o, current psychiatric symptoms , medical problems, risk/benefits and alternatives of medications, medications compliance, coping strategies, substance abuse h/o, relapse prevention, importance of follow up with psychiatrist and therapist, discharge plan. Medical Problems: patient is obese Diagnostic Results: 01/07/17 08:23 01/07/17 08:23 Lab Results 01/07/17 08:23: WBC 4.8 D, RBC 4.93, Hgb 14.5, Hct 43.0, MCV 87.2, MCH 29.4, MCHC 33.7, RDW 13.0, Plt Count 145, MPV 12.3 H, Gran % 56.8, Lymph % (Auto) 35.6 H, [place] % (Auto) 7.0 H, Eos % (Auto) 0.2 L, Baso % (Auto) 0.4, Gran # 2.74 , Lymph # 1.7, [place] # 0.3, Eos # 0.0, Baso # 0.02, Sodium 138, Potassium 3.7, Chloride 100, Carbon Dioxide 29, Anion Gap 13, BUN 10, Creatinine 0.8, Est GFR ( Amer) > 60, Est GFR (Non-Af Amer) > 60, Random Glucose 87, Hemoglobin A1c 5.1, Calcium 9.2, Total Bilirubin 0.8, AST 29, ALT 23, Alkaline Phosphatase 53, Total Protein 8.0, Albumin 4.5, Globulin 3.5, Albumin/Globulin Ratio 1.3, Triglycerides 68, Cholesterol 136, LDL Cholesterol Direct 74, HDL Cholesterol 41 , Free T4 0.92, TSH 3rd Generation 3.36, RPR Nonreactive 01/06/17 04:05: Urine Color yellow, Urine Appearance Clear, Urine pH 6.0, Ur Specific [place] >= 1.030, Urine Protein Negative, Urine Glucose (UA) Negative, Urine Ketones Trace H, Urine Blood Negative, Urine Nitrate Negative, Urine Bilirubin Negative, Urine Urobilinogen 0.2, Ur Leukocyte Esterase Negative, Urine Opiates Screen Negative, Urine Methadone Screen Negative, Ur Barbiturates Screen Negative, Ur Phencyclidine Scrn Negative, Ur Amphetamines Screen Negative , U Benzodiazepines Scrn Negative, U Oth Cocaine Metabols Negative, U Cannabinoids Screen Negative 01/06/17 03:35: WBC 7.0 D, RBC 4.73, Hgb 13.8 L, Hct 41.7 L, MCV 88.2, MCH 29.2 , MCHC 33.1, RDW 13.4, Plt Count 122, MPV 13.1 H, Gran % 65.4, Lymph % (Auto) 26.8, [place] % (Auto) 7.2 H, Eos % (Auto) 0.3 L, Baso % (Auto) 0.3, Gran # 4.60, Lymph # 1.9, [place] # 0.5, Eos # 0.0, Baso # 0.02, Sodium 139, Potassium 3.7, Chloride 99, Carbon Dioxide 30, Anion Gap 14, BUN 12, Creatinine 0.9, Est GFR ( Amer) > 60, Est GFR (Non-Af Amer) > 60, Random Glucose 86, Calcium 8.9, Total Bilirubin 0.5, AST 24, ALT 14, Alkaline Phosphatase 65, Total Protein 8.5 H, Albumin 4.5, Globulin 3.9, Albumin/Globulin Ratio 1.2, Alcohol, Quantitative < 10 Temp Pulse Resp BP Pulse Ox 98.0 F 64 20 119/70 93 L 01/08/17 07:59 01/08/17 07:59 01/08/17 07:59 01/08/17 07:59 01/06/17 10:00 DSM 5 Symptoms Update: Patient is a 31 yo male with hx of Paranoid Schizophrenia, catatonic behaviors, multiple psychiatric admissions, current f/u at [facility] where he is compliant with Risperdal Consta 50 mg IM q2 weeks who was BIBA for a psychiatric evaluation. Review of ER records indicate that mother reported that patient has been delusional with poor sleep. Patient accused mother of "changing his skin and switching out his penis". Apparently he was seen in this ER on 12/22/16 with symptoms of noncompliance and difficulty sleeping and discharged to f/u with psychiatric provider. was seen and examined today at the [facility], presented to have fair personal hygiene, good ADLs. Patient presented to have psychotic symptoms, some catatonia, was more expressive and talkative today, was minimizing all of the symptoms. Patient had history of feeling that people are poisoning his food, denied That feelings at the moment of interview. pt tolerates medications well, denied any side effects, none was observed or reported. Aims 0 no EPS. risperdal consta should be given on 12 of january, confirmed by [facility] Impression: paranoid schizophrenia with catatonia Medication Change: Yes Medical Record Reviewed: Yes Consults ordered or reviewed: medical consult was called Mental Status Examination - Cognitive Function Orientation: Person, Place, Situation Memory: Impaired Attention: Poor Concentration: Poor Association: Loose Fund of Knowledge: Poor - Mood Mood: Depressed - Affect Affect: Constricted - Formal Thought Process Formal Thought Process: Delusions, Paranoia, Loosening of associations, Other ( thought blocking) - Suicidal Ideation Suicidal Ideation: No - Homicidal Ideation Homicidal Ideation: No Goal/Treatment Plan - Goal/Treatment Plan Need for Continued Stay: Remain at risks for inpatient hospitalization, Severe depression anxiety, Discharge may exacerbated symptoms, Severe functional impairment Progress Toward Problem(s) and Goals/Treatment Plan: milieu, structure, supportive therapy Will call his mother for collateral if patient will give permission We'll continue Risperdal Consta 50 mg next dose will be January 12 We'll start Risperdal 0.5 mg twice a day for psychosis Trazodone will be resumed 50 mg at the nighttime we'll continue Ativan 1 mg twice a day at the morning time at the nighttime for catatonia table worker evaluation We'll monitor closely Estimated Date of D/C: 01/15/17 (monitor closely)
--- NOTE | 2017-01-10 04:15 | PN ---
DATE: 01/09/2017 SUBJECTIVE: The patient seen and examined on the bedside. Looks comfortable, complaining about nausea, complaining about gassy stomach, constipation, fungus on the toenails; otherwise, vomiting, or diarrhea. No hematuria or hematochezia. No swelling of the leg. No chest pain or palpitation. No headache, no dizziness. PHYSICAL EXAMINATION: VITAL SIGNS: Temperature 97.6, pulse 83, blood pressure 113/85, and respiratory rate 16. HEENT: Head normocephalic, atraumatic. Eyes: PERRLA. Extraocular muscles intact. Conjunctivae pink. Eyelids unremarkable. Nose patent. Mucous membranes moist. NECK: Supple. No carotid bruit, JVD or thyromegaly. CHEST: Bilaterally symmetrical. HEART: S1, S2 positive. LUNGS: Clear to auscultation. ABDOMEN: Soft. Bowel sounds present. No organomegaly. EXTREMITIES: No edema, no cyanosis. NEUROLOGIC: The patient is awake, alert, moving all 4 extremities. No focal deficits. MEDICATIONS: Ativan, trazadone, Maalox, milk of magnesia, Pepcid, Risperdal, Tylenol. LABORATORY DATA: White blood cells 4.8, hemoglobin 14.5, hematocrit 43.0, and platelets 145. ASSESSMENT AND PLAN: The patient is a 31-year-old male with history of anemia got better, gastroesophageal reflux disease, dyspepsia, tinea pedis. Podiatry is on the case. RPR negative. History of depression, anxiety, and bipolar. Psychiatrist is on the case, and the patient is confused according to him. He said, "My mother is changing my skin. I feel better". Continue psych medication treatment. We will follow up. Nesha Smart MD cc: [id number] TT: 01/10/2017 03:12:10 Confirmation # [id number] Dictation # [id number] sergey 01/10/2017 03:14:41 URI
[2017-01-10 07:41] VITALS: RESP 20
--- NOTE | 2017-01-10 17:04 | PCM.PYCHPN ---
Psychiatric Progress Note - Psychiatric Progress Note Patient seen today, length of contact: 30min Patient Chief Complaint: "I feel better, when I will be discharged? Problems Identified/Issues Discussed: Suicide/ homicide prevention, past psychiatric h/o, current psychiatric symptoms , medical problems, risk/benefits and alternatives of medications, medications compliance, coping strategies, substance abuse h/o, relapse prevention, importance of follow up with psychiatrist and therapist, discharge plan. Medical Problems: patient is obese Diagnostic Results: 01/07/17 08:23 01/07/17 08:23 Lab Results 01/07/17 08:23: WBC 4.8 D, RBC 4.93, Hgb 14.5, Hct 43.0, MCV 87.2, MCH 29.4, MCHC 33.7, RDW 13.0, Plt Count 145, MPV 12.3 H, Gran % 56.8, Lymph % (Auto) 35.6 H, [place] % (Auto) 7.0 H, Eos % (Auto) 0.2 L, Baso % (Auto) 0.4, Gran # 2.74 , Lymph # 1.7, [place] # 0.3, Eos # 0.0, Baso # 0.02, Sodium 138, Potassium 3.7, Chloride 100, Carbon Dioxide 29, Anion Gap 13, BUN 10, Creatinine 0.8, Est GFR ( Amer) > 60, Est GFR (Non-Af Amer) > 60, Random Glucose 87, Hemoglobin A1c 5.1, Calcium 9.2, Total Bilirubin 0.8, AST 29, ALT 23, Alkaline Phosphatase 53, Total Protein 8.0, Albumin 4.5, Globulin 3.5, Albumin/Globulin Ratio 1.3, Triglycerides 68, Cholesterol 136, LDL Cholesterol Direct 74, HDL Cholesterol 41 , Free T4 0.92, TSH 3rd Generation 3.36, RPR Nonreactive 01/06/17 04:05: Urine Color yellow, Urine Appearance Clear, Urine pH 6.0, Ur Specific [place] >= 1.030, Urine Protein Negative, Urine Glucose (UA) Negative, Urine Ketones Trace H, Urine Blood Negative, Urine Nitrate Negative, Urine Bilirubin Negative, Urine Urobilinogen 0.2, Ur Leukocyte Esterase Negative, Urine Opiates Screen Negative, Urine Methadone Screen Negative, Ur Barbiturates Screen Negative, Ur Phencyclidine Scrn Negative, Ur Amphetamines Screen Negative , U Benzodiazepines Scrn Negative, U Oth Cocaine Metabols Negative, U Cannabinoids Screen Negative 01/06/17 03:35: WBC 7.0 D, RBC 4.73, Hgb 13.8 L, Hct 41.7 L, MCV 88.2, MCH 29.2 , MCHC 33.1, RDW 13.4, Plt Count 122, MPV 13.1 H, Gran % 65.4, Lymph % (Auto) 26.8, [place] % (Auto) 7.2 H, Eos % (Auto) 0.3 L, Baso % (Auto) 0.3, Gran # 4.60, Lymph # 1.9, [place] # 0.5, Eos # 0.0, Baso # 0.02, Sodium 139, Potassium 3.7, Chloride 99, Carbon Dioxide 30, Anion Gap 14, BUN 12, Creatinine 0.9, Est GFR ( Amer) > 60, Est GFR (Non-Af Amer) > 60, Random Glucose 86, Calcium 8.9, Total Bilirubin 0.5, AST 24, ALT 14, Alkaline Phosphatase 65, Total Protein 8.5 H, Albumin 4.5, Globulin 3.9, Albumin/Globulin Ratio 1.2, Alcohol, Quantitative < 10 Temp Pulse Resp BP Pulse Ox 98.0 F 64 20 119/70 93 L 01/08/17 07:59 01/08/17 07:59 01/08/17 07:59 01/08/17 07:59 01/06/17 10:00 Temp Pulse Resp BP Pulse Ox 98.0 F 78 20 123/73 93 L 01/10/17 07:40 01/10/17 16:49 01/10/17 07:40 01/10/17 16:49 01/06/17 10:00 DSM 5 Symptoms Update: Patient is a 31 yo male with hx of Paranoid Schizophrenia, catatonic behaviors, multiple psychiatric admissions, current f/u at [facility] where he is compliant with Risperdal Consta 50 mg IM q2 weeks who was BIBA for a psychiatric evaluation. Review of ER records indicate that mother reported that patient has been delusional with poor sleep. Patient accused mother of "changing his skin and switching out his penis". Apparently he was seen in this ER on 12/22/16 with symptoms of noncompliance and difficulty sleeping and discharged to f/u with psychiatric provider. was seen and examined today at the rom, presented to have fair personal hygiene, good ADLs. Patient presented to have psychotic symptoms, some catatonia, was more expressive and talkative today, was minimizing all of the symptoms, pt still presented to have circumstantial and tangential, was keep coming back to the interview room even after this commercial lines underwriter explained pt d/c plan. as per staff pt was looking at his private part at the morning, this commercial lines underwriter cannot exclude may be it is related to the side effect from trazodone, will d/c it and start sonata. requested to have family meeting with pt's mother. pt tolerates medications well, denied any side effects, none was observed or reported. Aims 0 no EPS. risperdal consta should be given on 12 of january, confirmed by [facility] Impression: paranoid schizophrenia with catatonia Medication Change: Yes (trazodone d/c, sonata started, rispedal increased po) Medical Record Reviewed: Yes Consults ordered or reviewed: medical consult was called Mental Status Examination - Cognitive Function Orientation: Person, Place, Situation Memory: Impaired Attention: Poor (some improvement) Concentration: Poor (some improvement) Association: Loose Fund of Knowledge: Poor - Mood Mood: Depressed (some improvement) - Affect Affect: Constricted (some improvement) - Formal Thought Process Formal Thought Process: Delusions (some improvement), Paranoia (some improvement ), Loosening of associations, Other (thought blocking) - Suicidal Ideation Suicidal Ideation: No - Homicidal Ideation Homicidal Ideation: No Goal/Treatment Plan - Goal/Treatment Plan Need for Continued Stay: Remain at risks for inpatient hospitalization, Severe depression anxiety, Discharge may exacerbated symptoms, Severe functional impairment Progress Toward Problem(s) and Goals/Treatment Plan: milieu, structure, supportive therapy Will call his mother for collateral if patient will give permission We'll continue Risperdal Consta 50 mg next dose will be January 12 Risperdal 1 mg twice a day for psychosis Trazodone d/c risk of priapism will start sonata 5mg po hs for insomnia we'll continue Ativan 1 mg twice a day at the morning time at the nighttime for catatonia youth accommodation support worker evaluation We'll monitor closely Estimated Date of D/C: 01/15/17 (monitor closely)
--- NOTE | 2017-01-11 02:58 | PN ---
DATE: 01/10/2017 SUBJECTIVE: The patient is a 31-year-old male. The patient is seen and examined at the bedside, loo ks comfortable. No nausea, vomiting, or diarrhea. No hematuria or hematochezia. No swelling of the leg. No chest pain, no palpitations. No headache, no dizziness. As per patient, he is feeling bet ter, he wants to go home. PHYSICAL EXAMINATION: VITAL SIGNS: Temperature 98, pulse 78, blood pressure 123/73, respiratory rate 20. HEENT: Head normocephalic, atraumatic. Eyes: PERRLA, extraocular muscles intact, conjunctivae pink . Eyelids: Unremarkable. Nose: Patent. NECK: Supple. No carotid bruit, JVD, or thyromegaly. CHEST: Bilaterally symmetrical. HEART: S1, S2 positive. LUNGS: Clear to auscultation. ABDOMEN: Soft. Bowel sounds present. No organomegaly. EXTREMITIES: No edema, no cyanosis. NEUROLOGIC: The patient is awake, alert, moving all 4 extremities. No focal deficits. MEDICATIONS: Ativan, milk of magnesia, Pepcid, risperidone, Sonata, Tylenol. LABORATORY DATA: We do not have recent labs today, but I reviewed old labs. ASSESSMENT AND PLAN: The patient is a 31-year-old male with obesity, tinea pedis, gastroesophageal r eflux disease, dyspepsia, with paranoid schizophrenia, catatonic behavior, multiple psych admissions, doing better. Gastrointestinal and deep venous thrombosis prophylaxis. Psychiatrist is on the juani e. We will follow up. Nesha Smart MD cc: [id number] TT: 01/11/2017 02:58:02 Confirmation # [id number] Dictation # [id number] vn
--- NOTE | 2017-01-11 08:56 | PCM.PYCHPN ---
Psychiatric Progress Note - Psychiatric Progress Note Patient seen today, length of contact: 30min Patient Chief Complaint: "I feel better, my mom is coming tomorrow" Problems Identified/Issues Discussed: Suicide/ homicide prevention, past psychiatric h/o, current psychiatric symptoms , medical problems, risk/benefits and alternatives of medications, medications compliance, coping strategies, substance abuse h/o, relapse prevention, importance of follow up with psychiatrist and therapist, discharge plan. Medical Problems: patient is obese Diagnostic Results: 01/07/17 08:23 01/07/17 08:23 Lab Results 01/07/17 08:23: WBC 4.8 D, RBC 4.93, Hgb 14.5, Hct 43.0, MCV 87.2, MCH 29.4, MCHC 33.7, RDW 13.0, Plt Count 145, MPV 12.3 H, Gran % 56.8, Lymph % (Auto) 35.6 H, [place] % (Auto) 7.0 H, Eos % (Auto) 0.2 L, Baso % (Auto) 0.4, Gran # 2.74 , Lymph # 1.7, [place] # 0.3, Eos # 0.0, Baso # 0.02, Sodium 138, Potassium 3.7, Chloride 100, Carbon Dioxide 29, Anion Gap 13, BUN 10, Creatinine 0.8, Est GFR ( Amer) > 60, Est GFR (Non-Af Amer) > 60, Random Glucose 87, Hemoglobin A1c 5.1, Calcium 9.2, Total Bilirubin 0.8, AST 29, ALT 23, Alkaline Phosphatase 53, Total Protein 8.0, Albumin 4.5, Globulin 3.5, Albumin/Globulin Ratio 1.3, Triglycerides 68, Cholesterol 136, LDL Cholesterol Direct 74, HDL Cholesterol 41 , Free T4 0.92, TSH 3rd Generation 3.36, RPR Nonreactive 01/06/17 04:05: Urine Color yellow, Urine Appearance Clear, Urine pH 6.0, Ur Specific [place] >= 1.030, Urine Protein Negative, Urine Glucose (UA) Negative, Urine Ketones Trace H, Urine Blood Negative, Urine Nitrate Negative, Urine Bilirubin Negative, Urine Urobilinogen 0.2, Ur Leukocyte Esterase Negative, Urine Opiates Screen Negative, Urine Methadone Screen Negative, Ur Barbiturates Screen Negative, Ur Phencyclidine Scrn Negative, Ur Amphetamines Screen Negative , U Benzodiazepines Scrn Negative, U Oth Cocaine Metabols Negative, U Cannabinoids Screen Negative 01/06/17 03:35: WBC 7.0 D, RBC 4.73, Hgb 13.8 L, Hct 41.7 L, MCV 88.2, MCH 29.2 , MCHC 33.1, RDW 13.4, Plt Count 122, MPV 13.1 H, Gran % 65.4, Lymph % (Auto) 26.8, [place] % (Auto) 7.2 H, Eos % (Auto) 0.3 L, Baso % (Auto) 0.3, Gran # 4.60, Lymph # 1.9, [place] # 0.5, Eos # 0.0, Baso # 0.02, Sodium 139, Potassium 3.7, Chloride 99, Carbon Dioxide 30, Anion Gap 14, BUN 12, Creatinine 0.9, Est GFR ( Amer) > 60, Est GFR (Non-Af Amer) > 60, Random Glucose 86, Calcium 8.9, Total Bilirubin 0.5, AST 24, ALT 14, Alkaline Phosphatase 65, Total Protein 8.5 H, Albumin 4.5, Globulin 3.9, Albumin/Globulin Ratio 1.2, Alcohol, Quantitative < 10 Temp Pulse Resp BP Pulse Ox 98.0 F 64 20 119/70 93 L 01/08/17 07:59 01/08/17 07:59 01/08/17 07:59 01/08/17 07:59 01/06/17 10:00 Temp Pulse Resp BP Pulse Ox 98.0 F 78 20 123/73 93 L 01/10/17 07:40 01/10/17 16:49 01/10/17 07:40 01/10/17 16:49 01/06/17 10:00 Temp Pulse Resp BP Pulse Ox 97.5 F L 76 20 117/73 93 L 01/11/17 07:57 01/11/17 07:57 01/11/17 07:57 01/11/17 07:57 01/06/17 10:00 DSM 5 Symptoms Update: Patient is a 31 yo male with hx of Paranoid Schizophrenia, catatonic behaviors, multiple psychiatric admissions, current f/u at [facility] where he is compliant with Risperdal Consta 50 mg IM q2 weeks who was BIBA for a psychiatric evaluation. Review of ER records indicate that mother reported that patient has been delusional with poor sleep. Patient accused mother of "changing his skin and switching out his penis". Apparently he was seen in this ER on 12/22/16 with symptoms of noncompliance and difficulty sleeping and discharged to f/u with psychiatric provider. was seen and examined today next to the nursing station, presented to have fair personal hygiene, good ADLs. Patient presented better, was smiling, was more talkative, pt willing to get his injection of Risperdal consta tomorrow, pt's mother is coming for the family meeting tomorrow, will obtain collaterals. pt reported tolerated meds well, no side effects observed or reported, AIMS 0, no EPS. pt denied v/a/t hallucinations, denied paranoid ideation, seems to be better, thought blocking still there, poverty of thoughts and speech. pt tolerates medications well, denied any side effects, none was observed or reported. Aims 0 no EPS. risperdal consta should be given on 12 of january, confirmed by [facility] Impression: paranoid schizophrenia with catatonia Medication Change: No Medical Record Reviewed: Yes Consults ordered or reviewed: medical consult was called, appreciated Mental Status Examination - Cognitive Function Orientation: Person, Place, Situation Memory: Impaired Attention: Poor (some improvement) Concentration: Poor (some improvement) Association: Loose Fund of Knowledge: Poor - Mood Mood: Depressed (some improvement) - Affect Affect: Constricted (more reactive, mood congruent) - Formal Thought Process Formal Thought Process: Delusions (some improvement), Paranoia (some improvement ), Loosening of associations, Other (thought blocking, poverty of thoughts) - Suicidal Ideation Suicidal Ideation: No - Homicidal Ideation Homicidal Ideation: No Goal/Treatment Plan - Goal/Treatment Plan Need for Continued Stay: Remain at risks for inpatient hospitalization, Severe depression anxiety, Discharge may exacerbated symptoms, Severe functional impairment Progress Toward Problem(s) and Goals/Treatment Plan: milieu, structure, supportive therapy family meeting with mother scheduled for tomorrow We'll continue Risperdal Consta 50 mg next dose will be January 12 Risperdal 1 mg twice a day for psychosis Trazodone d/c risk of priapism will start sonata 5mg po hs for insomnia we'll continue Ativan 1 mg twice a day at the morning time at the nighttime for catatonia workers compensation adjuster evaluation We'll monitor closely Estimated Date of D/C: 01/15/17 (monitor closely)
--- NOTE | 2017-01-12 05:31 | PN ---
DATE: 01/12/2017 The patient is a 31-year-old male. SUBJECTIVE: The patient was seen and examined on the bedside, looks comfortable , complaining about gas in his stomach. No nausea, vomiting, or diarrhea. No hematuria or hematochezia. No headache. No dizziness. PHYSICAL EXAMINATION: VITAL SIGNS: Temperature 97.5, pulse 109, blood pressure 123/80 , respiratory rate 20. HEAD: Normocephalic, atraumatic. EYES: PERRLA. Extraocular muscles are intact. Conjunctivae pink. Eyelids unremarkable. Nose is patent. NECK: Supple. No carotid bruit, JVD, or thyromegaly. CHEST: Bilaterally symmetrical. HEART: S1, S2 positive. LUNGS: Clear to auscultation. ABDOMEN: Soft. Bowel sounds present. No organomegaly. EXTREMITIES: No edema. No cyanosis. NEUROLOGIC: The patient is awake, alert, moving all 4 extremities. No focal deficits. MEDICATIONS: Ativan, Maalox, Milk of Magnesia, Pepcid, Risperdal, sonata, Tylenol. LABORATORY DATA: We do not have labs today. ASSESSMENT AND PLAN: The patient is a 31-year-old male with history of gastroesophageal reflux disease, dyspepsia, tinea pedis, has psychotic symptoms according to psychiatrist. The patient said he is getting better. "My mom is coming tomorrow." Discussion done with Dr. Clemons. The patient is getting sonata for insomnia. According to him, he cannot sleep. Social workers are working. Continue present treatment. We will follow up. Nesha Smart MD cc: [id number] TT: 01/12/2017 05:30:53 Confirmation # [id number] Dictation # [id number] dejon GREWAL
[2017-01-12 07:28] VITALS: BP 121/82; PULSE 80; TEMP 98.3
[2017-01-12] MEDS ORDERED: RISPERIDAL Consta 50 MG INJ IM SCH (08:00)
--- NOTE | 2017-01-12 18:52 | PCM.PYCHDC ---
Mental Status Examination - Mental Status Examination Orientation: Person, Place, Situation, Time Memory: Intact Mood: Neutral Affect: Broad (and mood congruent) Attention: WNL Concentration: WNL Association: WNL Fund of Knowledge: WNL Formal Thought Process: Other (poverty of thoughts and some poverty of speech) Description of patient's judgement and insight: Pt has improved insight into mental and medical illness, pt was compliant with medications and unit rules and regulations, pt was going to groups, was calm, cooperative, socially appropriate, no behavioral incidents, no agitation, no aggression. Psychotic Thoughts and Behaviors: Pt denied v/a/t hallucinations, denied paranoid ideations, pt does not appear to be psychotic, and thought process is goal directed. Suicidal Ideation: No Current Homicidal Ideation?: No Plan: pt adamantly denied thoughts of harming self or others denied intent or plan. Discharge Summary - Discharge Note Reason for Hospitalization: worsening psychosis Psychiatric History (includes Medical, Family, Personal Hx): mmultiple hospitalizations in the past please see initial evaluation Laboratory Data: 01/07/17 08:23 01/07/17 08:23 Lab Results 01/07/17 08:23: WBC 4.8 D, RBC 4.93, Hgb 14.5, Hct 43.0, MCV 87.2, MCH 29.4, MCHC 33.7, RDW 13.0, Plt Count 145, MPV 12.3 H, Gran % 56.8, Lymph % (Auto) 35.6 H, Bladen % (Auto) 7.0 H, Eos % (Auto) 0.2 L, Baso % (Auto) 0.4, Gran # 2.74 , Lymph # 1.7, Bladen # 0.3, Eos # 0.0, Baso # 0.02, Sodium 138, Potassium 3.7, Chloride 100, Carbon Dioxide 29, Anion Gap 13, BUN 10, Creatinine 0.8, Est GFR ( Amer) > 60, Est GFR (Non-Af Amer) > 60, Random Glucose 87, Hemoglobin A1c 5.1, Calcium 9.2, Total Bilirubin 0.8, AST 29, ALT 23, Alkaline Phosphatase 53, Total Protein 8.0, Albumin 4.5, Globulin 3.5, Albumin/Globulin Ratio 1.3, Triglycerides 68, Cholesterol 136, LDL Cholesterol Direct 74, HDL Cholesterol 41 , Free T4 0.92, TSH 3rd Generation 3.36, RPR Nonreactive 01/06/17 04:05: Urine Color yellow, Urine Appearance Clear, Urine pH 6.0, Ur Specific [place] >= 1.030, Urine Protein Negative, Urine Glucose (UA) Negative, Urine Ketones Trace H, Urine Blood Negative, Urine Nitrate Negative, Urine Bilirubin Negative, Urine Urobilinogen 0.2, Ur Leukocyte Esterase Negative, Urine Opiates Screen Negative, Urine Methadone Screen Negative, Ur Barbiturates Screen Negative, Ur Phencyclidine Scrn Negative, Ur Amphetamines Screen Negative , U Benzodiazepines Scrn Negative, U Oth Cocaine Metabols Negative, U Cannabinoids Screen Negative 01/06/17 03:35: WBC 7.0 D, RBC 4.73, Hgb 13.8 L, Hct 41.7 L, MCV 88.2, MCH 29.2 , MCHC 33.1, RDW 13.4, Plt Count 122, MPV 13.1 H, Gran % 65.4, Lymph % (Auto) 26.8, Bladen % (Auto) 7.2 H, Eos % (Auto) 0.3 L, Baso % (Auto) 0.3, Gran # 4.60, Lymph # 1.9, Bladen # 0.5, Eos # 0.0, Baso # 0.02, Sodium 139, Potassium 3.7, Chloride 99, Carbon Dioxide 30, Anion Gap 14, BUN 12, Creatinine 0.9, Est GFR ( Amer) > 60, Est GFR (Non-Af Amer) > 60, Random Glucose 86, Calcium 8.9, Total Bilirubin 0.5, AST 24, ALT 14, Alkaline Phosphatase 65, Total Protein 8.5 H, Albumin 4.5, Globulin 3.9, Albumin/Globulin Ratio 1.2, Alcohol, Quantitative < 10 Vital Signs Temp Pulse Resp BP Pulse Ox 01/12/17 07:28 98.3 F 80 20 121/82 01/11/17 16:54 109 H 123/73 01/11/17 07:57 97.5 F L 76 20 117/73 01/10/17 16:49 78 123/73 01/10/17 07:40 98.0 F 36 L 20 105/77 01/09/17 16:40 83 138/85 01/09/17 10:07 97.6 F 75 16 116/61 01/08/17 07:59 98.0 F 64 20 119/70 01/07/17 16:00 57 L 117/76 01/06/17 10:00 98.1 F 79 22 124/79 93 L 01/06/17 07:42 98.1 F 72 18 125/76 98 01/06/17 06:57 77 17 128/81 97 01/06/17 05:00 80 14 121/70 98 01/06/17 03:49 76 16 122/72 97 Consultations:: List each consultation separately and include: 1. Reason for request. 2. Findings. 3. Follow-up Consultations: medical consult was called, appreciated see notes for more detailed information Summary of Hospital Course include:: 1. Description of specific treatment plan utilized for patients during their course of treatmen. 2. Summarize the time- course for resolution of acute symptoms and/or regressed behaviors. 3. Describe issues identified and worked on during hospitalization. 4. Describe medication utilized. 5. Describe medical problems identified and treated. 6. Reassessment of suicide risk Summary of Hospital Course: Patient is a 31 yo male with hx of Paranoid Schizophrenia, catatonic behaviors, multiple psychiatric admissions, current f/u at [facility] where he is compliant with Risperdal Consta 50 mg IM q2 weeks who was BIBA for a psychiatric evaluation. Review of ER records indicate that mother reported that patient has been delusional with poor sleep. Patient accused mother of "changing his skin and switching out his penis". Apparently he was seen in this ER on 12/22/16 with symptoms of noncompliance and difficulty sleeping and discharged to f/u with psychiatric provider. at the day of admission patient presented to have thought blocking and speech latency with his responses. Regarding stressors he points to his groin area, indicating concern about his genitals. he was not able to elaborate in a logical manner about this concern. He appears guarded. Patient denies any hallucinations and he is not observed to be responding to internal stimuli during our meeting. Affect is flat and oddly-related. please see Dr. Mixon notes for more detailed information. over the course of this hospitalizationmedications were confirmed by the [facility], Risperdal Consta 50 mg every 2 weeks patient got injection on January 12.. Patient also was started on Risperdal by mouth which was titrated 1 mg twice a day as well as this designer writer had concern about trazodone could give priapism and patient has difficult to express himself had nonspecific complains of genital area, trazodone was discontinue and sonata was started. patient tolerated medications well, no side effects observed or reported, aims 0 , no EPS. family meeting with mother took place today, patient mother reported that patient was not doing well prior to come to the hospital, patient had feelings that his skin was changed by her as well as she had impression that his mother removed his penis. Obviously it does not true, pt was psychotic. No abuse, patient denied any sexual abuse. As per mother patient presents well now and ready for discharge. pt was compliant with f/u appt and injection prior to come to the hospital. Over the course of this hospitalization pt was attending groups, pt also had medication management, had therapeutic milieu. Overall pt improved significantly, pt's affect became brighter, pt was less depressed, has realistic future oriented plans "I want to live by myself", pt also does not appear to be psychotic, or anxious, pt was socially appropriate, no behavioral issues, pts insight improved as well and soon pt deemed to be ready for discharge. At the time of the discharge pt denied been depressed, denied thoughts of harming self or others, denied psychotic symptoms, and pt does not appeared to be psychotic, denied been anxious, was considered to pose no threat to self or others, will be following up at [facility], information about follow up appointment, time and address provided to the pt, it is patient responsibility to follow up with outpatient clinic, PMD as well as specialists (see SW note for more detailed information). In case pt will need to obtain results of studies pending at discharge pt was provided with contact information of Psychiatric Inpatient unit [phone] as well as Medical Record Department [phone]. pt was provided with prescriptions for all of medications (please see medication reconciliation form) Pt was educated about safety plan in case of worsening of symptoms or in case of suicidal or homicidal ideation call 911 or go to the nearest ER, also was educated to take meds as prescribed and stay away from drugs, pt verbalized understanding. - Diagnosis (1) Schizophrenia Status: Acute - Final Diagnosis (DSM 5) Condition upon Discharge: STABLE Disposition: HOME/ ROUTINE Follow-up Treatment Plan: At the time of the discharge pt denied been depressed, denied thoughts of harming self or others, denied psychotic symptoms, and pt does not appeared to be psychotic, denied been anxious, was considered to pose no threat to self or others, will be following up at [facility], information about follow up appointment, time and address provided to the pt, it is patient responsibility to follow up with outpatient clinic, PMD as well as specialists (see SW note for more detailed information). In case pt will need to obtain results of studies pending at discharge pt was provided with contact information of Psychiatric Inpatient unit [phone] as well as Medical Record Department [phone]. pt was provided with prescriptions for all of medications (please see medication reconciliation form) Pt was educated about safety plan in case of worsening of symptoms or in case of suicidal or homicidal ideation call 911 or go to the nearest ER, also was educated to take meds as prescribed and stay away from drugs, pt verbalized understanding. Prescriptions/Medication Reconciliation: LORazepam [Ativan] 1 mg PO AMHS #30 tab Risperidone [RISPERDAL Consta Inj] 50 mg IM Q14D #1 inj Risperidone [Risperdal] 1 mg PO AMHS #14 tablet Zaleplon [Sonata] 5 mg PO HS #14 cap - Smoking Cessation Smoking Cessation Medication prescribed: No Reason for not providing: pt does not smoke - Antipsychotic Medications Pt discharged on 2 or more routine antipsychotic medications: No
== END 2017-01-12 15:25 | disposition home or self-care (01) | DRG 885 ==
LOC: ED 01:49 → ERH 07:54 → PSYC 08:16
PROVIDERS: ADMIT Psychiatry & Neurology Psychiatry; ATTEND Psychiatry & Neurology Psychiatry
DX: F20.0 Paranoid schizophrenia (principal); F20.2 Catatonic schizophrenia; I10 Essential (primary) hypertension; B35.3 Tinea pedis; D64.9 Anemia, unspecified; B35.1 Tinea unguium; K21.9 Gastro-esophageal reflux disease without esophagitis; G47.00 Insomnia, unspecified; E66.9 Obesity, unspecified; Z68.37 Body mass index [BMI] 37.0-37.9, adult; Z88.0 Allergy status to penicillin

== ENCOUNTER 2017-05-01 12:51 | Emergency (ER) | payer MEDICARE, MEDICAID ==
[2017-05-01 13:16] VITALS: BMI 37.9
[2017-05-01 13:22] VITALS: TEMP 98.2
[2017-05-01] MEDS ORDERED: RISPERIDAL Consta 50 MG INJ IM STA (14:12)
--- NOTE | 2017-05-01 14:14 | ED PDOC ---
Arrival/HPI - General Chief Complaint: Medical Clearance Time Seen by Provider: 05/01/17 13:30 Historian: Patient - History of Present Illness Narrative History of Present Illness (Text): 05/01/17 14:00 Fabian Mackey is a 31 year old male, whose past medical history includes bipolar disorder and paranoid schizophrenia, who comes to emergency department to receive 50 mg risperidone shot. Patient states that he normally has the shot every two weeks at the [facility] but the nurse who routinely administers the shot is on vacation. Patient was told he can come to the hospital for administration. Patient denies any visual/auditory hallucinations , suicidal ideation, homicidal ideation, or any other complaint at this time. Time/Duration: Other (biweekly risperidone shot) Modifying Factors (Text): none Context: Home Associated Symptoms (Text): none Past Medical History - Provider Review Nursing Documentation Reviewed: Yes - Infectious Disease Hx of Infectious Diseases: None - Cardiac Hx Cardiac Disorders: No Hx Hypertension: No (patient and mother deny) - Pulmonary Hx Respiratory Disorders: No Hx Tuberculosis: No - Neurological Hx Neurological Disorder: No HX Cerebrovascular Accident: No Hx Seizures: No - HEENT Hx HEENT Disorder: No - Renal Hx Renal Disorder: No - Endocrine/Metabolic Hx Endocrine Disorders: No - Hematological/Oncological Hx Blood Disorders: No Hx Cancer: No - Integumentary Hx Dermatological Disorder: No Other/Comment: Patient c/o fungal infection in right big toe and being treated with Terbinafine (both patient and mother confirmed). 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 - Psychiatric Hx Schizophrenia: Yes Hx Substance Use: No Other/Comment: Paranoia - Anesthesia Hx Anesthesia: No Hx Anesthesia Reactions: No Hx Malignant Hyperthermia: No Family/Social History - Physician Review Nursing Documentation Reviewed: Yes Family/Social History: No Known Family HX Smoking Status: Never Smoked Hx Alcohol Use: No Hx Substance Use: No Allergies/Home Meds Allergies/Adverse Reactions: Allergies Penicillins Allergy (Mild, Verified 01/08/17 00:13) RASH Home Medications: Home Meds Medication Instructions Recorded Confirmed No Known Home Med 05/01/17 05/01/17 Review of Systems - Physician Review All systems were reviewed & negative as marked: Yes - Review of Systems Constitutional: absent: Fevers, Night Sweats Eyes: absent: Vision Changes ENT: absent: Hearing Changes Respiratory: absent: SOB Cardiovascular: absent: Chest Pain Gastrointestinal: absent: Abdominal Pain Genitourinary Male: absent: Dysuria Musculoskeletal: absent: Arthralgias Skin: absent: Rash, Pruritis Neurological: absent: Headache Hemo/Lymphatic: absent: Adenopathy Psychiatric: absent: Anxiety, Suicidal Ideation Physical Exam Vital Signs Reviewed: Yes Vital Signs Temp Pulse Resp BP Pulse Ox 05/01/17 13:21 98.2 F 70 18 118/77 97 Temperature: Afebrile Blood Pressure: Normal Pulse: Regular Respiratory Rate: Normal Appearance: Positive for: Well-Appearing, Non-Toxic, Comfortable Pain Distress: None Mental Status: Positive for: Alert and Oriented X 3 - Systems Exam Head: Present: Atraumatic, Normocephalic Pupils: Present: PERRL Conjunctiva: Present: Normal Mouth: Present: Moist Mucous Membranes Pharnyx: Present: Normal. No: ERYTHEMA, EXUDATE, Peritonsilar Swelling Neck: Present: Normal Range of Motion Respiratory/Chest: Present: Clear to Auscultation, Good Air Exchange. No: Respiratory Distress, Accessory Muscle Use Cardiovascular: Present: Regular Rate and Rhythm, Normal S1, S2. No: Murmurs Abdomen: Present: Normal Bowel Sounds. No: Tenderness, Distention, Peritoneal Signs Back: Present: Normal Inspection Upper Extremity: Present: Normal Inspection. No: Cyanosis, Edema Lower Extremity: Present: Normal Inspection. No: Edema Neurological: Present: GCS=15, CN II-XII Intact, Speech Normal Skin: Present: Warm, Dry, Normal Color. No: Rashes Psychiatric: Present: Alert, Oriented x 3, Normal Insight, Normal Concentration , Normal Affect, Normal Mood. No: Anxious, Agitated, Suicidal Ideation, Homicidal Ideation, Delusional, Hallucinations Medical Decision Making ED Course and Treatment: 05/01/17 14:00 Impression: 31 year old who comes to emergency department for biweekly risperidone shot. Plan: -- Risperidone 50 mg injection -- Reassess and disposition Prior Visits: Notes and results from previous visits were reviewed. Patient last seen in the ED on 01/06/17 for psychiatric evaluation. Patient was admitted to hospitalist care for further evaluation. Progress Notes: 05/01/17 14:[address] Becerril, who states to confirm dose of Risperidol and once it is confirmed, administer injection given the circumstances. 05/01/17 14:12 Spoke to [facility] who confirmed that patient receives 50 mg of Risperidol every 14 days. 05/01/17 14:15 Patient brought his own Risperidol to the emergency department. However, ER cannot administer outpatient medications therefore new dose of 50 mg Risperidol will be ordered and administered to patient. 05/01/17 14:52 Patient otherwise with no SI or HI or hallucinations and otherwise is ok for d/ c. - Medication Orders Current Medication Orders: Discontinued Medications Risperidone (Risperdal Consta Inj) 50 mg IM ONCE STA PRN Reason: Protocol Stop: 05/01/17 14:13 - Scribe Statement The provider has reviewed the documentation as recorded by the Trudyiblinda Bains Provider Scribe Attestation: All medical record entries made by the Scribe were at my direction and personally dictated by me. I have reviewed the chart and agree that the record accurately reflects my personal performance of the history, physical exam, medical decision making, and the department course for this patient. I have also personally directed, reviewed, and agree with the discharge instructions and disposition. Disposition/Present on Arrival - Present on Arrival Any Indicators Present on Arrival: No History of DVT/PE: No History of Uncontrolled Diabetes: No Urinary Catheter: No History of Decub. Ulcer: No History Surgical Site Infection Following: None - Disposition Have Diagnosis and Disposition been Completed?: Yes Diagnosis: Medication administered Disposition: HOME/ ROUTINE Disposition Time: 14:10 Patient Plan: Discharge Condition: GOOD Additional Instructions: Follow up with [facility]. Return to the emergency department if any new concerning symptoms. Referrals: Thalia Maguire DO [Primary Care Provider] - Follow up with primary [facility] [Outside] - Follow up with primary
[2017-05-01 15:43] VITALS: BP 120/80; PULSE 75; RESP 16; O2SAT 99
== END 2017-05-01 15:10 | disposition home or self-care (01) ==
LOC: ED 12:51
DX: Z79.899 Other long term (current) drug therapy (principal); F31.9 Bipolar disorder, unspecified; F20.0 Paranoid schizophrenia
CPT/HCPCS: 96372; 99283; J2794

== ENCOUNTER 2017-06-04 02:26 | Emergency (ER) | payer MEDICARE, MEDICAID ==
[2017-06-04 02:26] VITALS: BMI 37.9
[2017-06-04 02:38] VITALS: TEMP 98.9
--- NOTE | 2017-06-04 02:59 | ED PDOC ---
Arrival/HPI - General Chief Complaint: Psychiatric Evaluation Time Seen by Provider: 06/04/17 02:29 Historian: Patient, Parent - History of Present Illness Narrative History of Present Illness (Text): 06/04/17 02:52 Fabian Mackey is a 31 year old male, whose past medical history includes paranoid schizophrenia, who presents to the emergency department accompanied by mother complaining of bizarre behavior. Mother states patient received Risperidone shots regularly and was scheduled for his next injection on 05/30 but refused to get it. Mother states patient has been behaving bizarrely, talking to himself, and not eating. Mother notes for last 4 days patient has been locking himself out his room and sleeping on the couch instead. Mother believes patient's medication is not working and brought him in for further evaluation. Patient denies any suicidal ideation, fever, chills, chest pain, shortness of breath, nausea, vomiting, diarrhea, urinary symptoms, back pain, neck pain, headache, dizziness, or any other complaints. Symptom Onset: Gradual Symptom Course: Unchanged Activities at Onset: Light Context: Home Past Medical History - Provider Review Nursing Documentation Reviewed: Yes - Infectious Disease Hx of Infectious Diseases: None - Cardiac Hx Cardiac Disorders: No Hx Hypertension: No (patient and mother deny) - Pulmonary Hx Respiratory Disorders: No Hx Tuberculosis: No - Neurological Hx Neurological Disorder: No HX Cerebrovascular Accident: No Hx Seizures: No - HEENT Hx HEENT Disorder: No - Renal Hx Renal Disorder: No - Endocrine/Metabolic Hx Endocrine Disorders: No - Hematological/Oncological Hx Blood Disorders: No Hx Cancer: No - Integumentary Hx Dermatological Disorder: No Other/Comment: Patient c/o fungal infection in right big toe and being treated with Terbinafine (both patient and mother confirmed). 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 - Psychiatric Hx Schizophrenia: Yes Hx Substance Use: No Other/Comment: Paranoia - Anesthesia Hx Anesthesia: No Hx Anesthesia Reactions: No Hx Malignant Hyperthermia: No Family/Social History - Physician Review Nursing Documentation Reviewed: Yes Family/Social History: Unknown Family HX Smoking Status: Never Smoked Hx Alcohol Use: No Hx Substance Use: No Allergies/Home Meds Allergies/Adverse Reactions: Allergies Penicillins Allergy (Mild, Verified 01/08/17 00:13) RASH Home Medications: Home Meds Medication Instructions Recorded Confirmed Unobtainable 06/04/17 06/04/17 Review of Systems - Physician Review All systems were reviewed & negative as marked: Yes - Review of Systems Constitutional: Normal. absent: Fevers Eyes: Normal ENT: Normal Respiratory: Normal. absent: SOB, Cough Cardiovascular: Normal. absent: Chest Pain Gastrointestinal: Normal. absent: Abdominal Pain, Diarrhea, Nausea, Vomiting Genitourinary Male: Normal. absent: Dysuria, Frequency, Hematuria, Urinary Output Changes Musculoskeletal: Normal. absent: Back Pain, Neck Pain Skin: Normal. absent: Rash Neurological: Normal. absent: Headache, Dizziness Endocrine: Normal Hemo/Lymphatic: Normal Psychiatric: Other (+non-compliant with medication, +bizarre behavior) Physical Exam Vital Signs Reviewed: Yes Vital Signs Temp Pulse Resp BP Pulse Ox 06/04/17 02:35 98.9 F 97 H 18 117/77 99 Temperature: Afebrile Blood Pressure: Normal Pulse: Regular Respiratory Rate: Normal Appearance: Positive for: Well-Appearing, Non-Toxic, Comfortable Pain Distress: None Mental Status: Positive for: Alert and Oriented X 3 - Systems Exam Head: Present: Atraumatic, Normocephalic Pupils: Present: PERRL Extroacular Muscles: Present: EOMI Conjunctiva: Present: Normal Mouth: Present: Moist Mucous Membranes Neck: Present: Normal Range of Motion Respiratory/Chest: Present: Clear to Auscultation, Good Air Exchange. No: Respiratory Distress, Accessory Muscle Use Cardiovascular: Present: Regular Rate and Rhythm, Normal S1, S2. No: Murmurs Abdomen: Present: Normal Bowel Sounds. No: Tenderness, Distention, Peritoneal Signs Back: Present: Normal Inspection Upper Extremity: Present: Normal Inspection. No: Cyanosis, Edema Lower Extremity: Present: Normal Inspection. No: Edema Neurological: Present: GCS=15, CN II-XII Intact, Speech Normal Skin: Present: Warm, Dry, Normal Color. No: Rashes Psychiatric: Present: Alert, Oriented x 3 Medical Decision Making ED Course and Treatment: 06/04/17 02:52 Impression: 31 year old male brought in for bizarre behavior and medication non-compliance. Plan: -- EKG -- Labs, alcohol level -- Urine drug screen -- Reassess and disposition Prior Visits: Notes and results from previous visits were reviewed. On 05/01/2017, pt was seen in the Emergency department for risperidone injection. Pt was d/c home. Progress Notes: Reviewed EKG, NSR at 97 bpm. LVH. Non-specific ST/T wave changes. 06/04/17 05:56 Pt seen and evaluated with PES fantasma Arora, who discussed case with psychiatrist environmental marketer. States pt is stable for d/c with outpatient f/u at [facility] with his psychiatrist. Pt and mother agreeable with plan. - Lab Interpretations Lab Results: 06/04/17 02:50 06/04/17 02:50 Lab Results 06/04/17 02:50: Alcohol, Quantitative < 10 06/04/17 02:50: Salicylates < 1 L, Acetaminophen < 10.0 L 06/04/17 02:50: Urine Opiates Screen Negative, Urine Methadone Screen Negative, Ur Barbiturates Screen Negative, Ur Phencyclidine Scrn Negative, Ur Amphetamines Screen Negative, U Benzodiazepines Scrn Negative, U Oth Cocaine Metabols Negative, U Cannabinoids Screen Negative 06/04/17 02:50: Sodium 142, Potassium 3.6, Chloride 103, Carbon Dioxide 24, Anion Gap 19, BUN 21, Creatinine 0.9, Est GFR ( Amer) > 60, Est GFR (Non- Af Amer) > 60, Random Glucose 94, Calcium 9.7, Total Bilirubin 0.5, AST 27, ALT 39, Alkaline Phosphatase 70, Total Protein 8.6 H, Albumin 4.9 H, Globulin 3.7, Albumin/Globulin Ratio 1.3 06/04/17 02:50: WBC 6.9 D, RBC 5.14, Hgb 15.1, Hct 43.2, MCV 84.0, MCH 29.4, MCHC 35.0, RDW 13.1, Plt Count 141, MPV 11.9 H, Gran % 64.5, Lymph % (Auto) 24.2 , [place] % (Auto) 10.5 H, Eos % (Auto) 0.4 L, Baso % (Auto) 0.4, Gran # 4.43, Lymph # 1.7, [place] # 0.7 H, Eos # 0.0, Baso # 0.03 I have reviewed the lab results: Yes - EKG Interpretation Interpreted by ED Physician: Yes Type: 12 lead EKG - Scribe Statement The provider has reviewed the documentation as recorded by the Trudyiblinda Velasquez Provider Scribe Attestation: All medical record entries made by the Scribe were at my direction and personally dictated by me. I have reviewed the chart and agree that the record accurately reflects my personal performance of the history, physical exam, medical decision making, and the department course for this patient. I have also personally directed, reviewed, and agree with the discharge instructions and disposition. Disposition/Present on Arrival - Present on Arrival Any Indicators Present on Arrival: No History of DVT/PE: No History of Uncontrolled Diabetes: No Urinary Catheter: No History of Decub. Ulcer: No History Surgical Site Infection Following: None - Disposition Have Diagnosis and Disposition been Completed?: Yes Diagnosis: Schizophrenia Disposition: HOME/ ROUTINE Disposition Time: 06:11 Patient Plan: Discharge Condition: STABLE Additional Instructions: Follow up this week [facility] as instructed Forms: [employer] ([place])
[2017-06-04 03:11] LABS: BASO # 0.03 K/mm3 (0.0-2.0); BASO % 0.4 % (0.0-3.0); EOS % 0.4 % (1.5-5.0); GRAN # 4.43 (1.4-6.5); GRAN % 64.5 % (50.0-68.0); HEMATOCRIT 43.2 % (42.0-52.0); LYMPH # 1.7 (1.2-3.4); LYMPH % 24.2 % (22.0-35.0); MEAN CORPUSCULAR HEMOGLOBIN 29.4 pg (25.0-35.0); MEAN PLATELET VOLUME 11.9 fl (7.0-11.0); MONO # 0.7 (0.1-0.6); MONO % 10.5 % (1.0-6.0); RED CELL DISTRIBUTION WIDTH 13.1 % (11.5-14.5); WHITE BLOOD COUNT 6.9 10^3/ul (4.5-11.0)
[2017-06-04 03:22] LABS: ALB/GLOB RATIO 1.3 (1.1-1.8); ALKALINE PHOSPHATASE 70 U/L (38-133); ALT/SGPT 39 U/L (7-56); AST/SGOT 27 U/L (15-59); BILIRUBIN,TOTAL 0.5 mg/dL (0.2-1.3); BLOOD UREA NITROGEN 21 mg/dL (7-21); CALCIUM 9.7 mg/dL (8.4-10.5); CARBON DIOXIDE 24 mmol/L (21-33); CHLORIDE 103 mmol/L (95-110); GFR AFRICAN-AMERICAN > 60; GLUCOSE,RANDOM 94 mg/dL (70-110); POTASSIUM 3.6 mmol/L (3.6-5.0); SODIUM 142 mmol/L (132-148); TOTAL PROTEIN 8.6 g/dL (5.8-8.3)
[2017-06-04 06:26] VITALS: BP 120/76; PULSE 87; RESP 16; O2SAT 100
--- NOTE | 2017-06-04 09:49 | CARD ---
APPROVED REPORT EKG Measurement Heart [id number] ID [id number] <Conclusion> Normal sinus rhythm Possible Left atrial enlargement Left ventricular hypertrophy Nonspecific ST abnormality Abnormal ECG
== END 2017-06-04 06:20 | disposition home or self-care (01) ==
LOC: ED 02:26
DX: F20.9 Schizophrenia, unspecified (principal)
CPT/HCPCS: 80053; 85025; 90791; 93005; 99283; G0480

== ENCOUNTER 2017-06-29 12:09 | Emergency (ER) | payer MEDICARE, MEDICAID ==
[2017-06-29 12:17] VITALS: BMI 35.2
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
[2017-06-29 13:07] LABS: ALB/GLOB RATIO 1.5 (1.1-1.8); ALKALINE PHOSPHATASE 60 U/L (38-126); ALT/SGPT 27 U/L (7-56); AST/SGOT 22 U/L (17-59); BILIRUBIN,TOTAL 0.6 mg/dL (0.2-1.3); BLOOD UREA NITROGEN 9 mg/dL (7-21); CALCIUM 9.3 mg/dL (8.4-10.5); CARBON DIOXIDE 28 mmol/L (21-33); CHLORIDE 102 mmol/L (98-107); GFR AFRICAN-AMERICAN > 60; GLUCOSE,RANDOM 92 mg/dL (70-110); POTASSIUM 3.8 mmol/L (3.6-5.0); SODIUM 142 mmol/L (132-148); TOTAL PROTEIN 7.6 g/dL (5.8-8.3)
[2017-06-29 13:11] LABS: BASO # 0.02 K/mm3 (0.0-2.0); BASO % 0.3 % (0.0-3.0); EOS % 0.1 % (1.5-5.0); GRAN # 5.34 (1.4-6.5); GRAN % 75.7 % (50.0-68.0); LYMPH # 1.4 (1.2-3.4); LYMPH % 19.1 % (22.0-35.0); MEAN CELL VOLUME 86.5 fl (80.0-105.0); MEAN CORPUSCULAR HGB CONC 33.5 g/dl (31.0-37.0); MEAN PLATELET VOLUME 12.6 fl (7.0-11.0); MONO # 0.3 (0.1-0.6); MONO % 4.8 % (1.0-6.0); RED CELL DISTRIBUTION WIDTH 13.3 % (11.5-14.5); WHITE BLOOD COUNT 7.1 10^3/ul (4.5-11.0)
--- NOTE | 2017-06-29 13:23 | RAD ---
HISTORY: medical clearance COMPARISON: 01/06/2017. FINDINGS: LUNGS: The lungs are well inflated and clear. PLEURA: No significant pleural effusion identified, no pneumothorax apparent. CARDIOVASCULAR: Normal. OSSEOUS STRUCTURES: No significant abnormalities. VISUALIZED UPPER ABDOMEN: Normal. OTHER FINDINGS: None. IMPRESSION: No active pulmonary disease.
[2017-06-29 13:28] LABS: URINE BILIRUBIN NEGATIVE (NEGATIVE); URINE BLOOD NEGATIVE (NEGATIVE); URINE GLUCOSE (UA) NEGATIVE (NEGATIVE); URINE KETONE NEGATIVE (NEGATIVE); URINE LEUKOCYTE ESTERASE NEGATIVE Leu/uL (NEGATIVE); URINE PROTEIN NEGATIVE mg/dL (<30 mg/dL); URINE UROBILINOGEN 0.2 E.U./dL (<1 E.U./dL)
[2017-06-29 13:29] LABS: URINE APPEARANCE CLEAR (CLEAR); URINE COLOR YELLOW (YELLOW)
[2017-06-29 23:02] VITALS: O2SAT 99
[2017-06-29 23:51] VITALS: BP 115/78; PULSE 87; RESP 19; TEMP 98.1
--- NOTE | 2017-06-30 01:04 | CARD ---
APPROVED REPORT EKG Measurement Heart [id number] <Conclusion> Normal sinus rhythm Minimal voltage criteria for LVH, may be normal variant Borderline ECG
== END 2017-06-29 23:50 | disposition short-term general hospital (02) ==
LOC: ED 12:09
DX: F20.9 Schizophrenia, unspecified (principal); Z91.19 Patient's noncompliance with other medical treatment and regimen
CPT/HCPCS: 71010; 80053; 81003; 85025; 93005; 99285; G0480

== ENCOUNTER 2017-12-01 08:17 | Emergency (ER) | payer MEDICARE, MEDICAID ==
[2017-12-01 08:35] VITALS: BMI 31.3
--- NOTE | 2017-12-01 08:47 | ED PDOC ---
Arrival/HPI <Romero Gutierrez - Last Filed: 12/01/17 17:51> - General Historian: Caregiver - History of Present Illness Time/Duration: Prior to Arrival Symptom Onset: Gradual Symptom Course: Unchanged Activities at Onset: Light Context: Home <Contreras Blum - Last Filed: 12/02/17 12:18> - General Chief Complaint: Psychiatric Evaluation Time Seen by Provider: 12/01/17 08:18 - History of Present Illness Narrative History of Present Illness (Text): 12/01/17 08:44 Fabian Mackey is a 32 year old male, whose past medical history includes paranoid schizophrenia, who presents to the emergency department via EMS after failing to take his medication. Patient refuses medication, food, and hygiene. Patient in er is calm, however is not answering questions, staring off. pt has presented similarly previously. Patient has been seen in the Emergency department multiple times for similar complaints. Limited HPI and ROS due to patient's condition. 12/01/17 11:36 (Contreras Blum) Past Medical History - Provider Review Nursing Documentation Reviewed: Yes - Infectious Disease Hx of Infectious Diseases: None - Cardiac Hx Cardiac Disorders: No Hx Hypertension: No (patient and mother deny) - Pulmonary Hx Respiratory Disorders: No Hx Tuberculosis: No - Neurological Hx Neurological Disorder: No HX Cerebrovascular Accident: No Hx Seizures: No - HEENT Hx HEENT Disorder: No - Renal Hx Renal Disorder: No - Endocrine/Metabolic Hx Endocrine Disorders: No - Hematological/Oncological Hx Blood Disorders: No Hx Cancer: No - Integumentary Hx Dermatological Disorder: No Other/Comment: Patient c/o fungal infection in right big toe and being treated with Terbinafine (both patient and mother confirmed). 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 - Psychiatric Hx Schizophrenia: Yes Hx Substance Use: No Other/Comment: Paranoia - Anesthesia Hx Anesthesia: No Hx Anesthesia Reactions: No Hx Malignant Hyperthermia: No <Contreras Blum - Last Filed: 12/02/17 12:18> Family/Social History - Physician Review Nursing Documentation Reviewed: Yes Family/Social History: Unknown Family HX Smoking Status: Never Smoked Hx Alcohol Use: No Hx Substance Use: No <Contreras Blum - Last Filed: 12/02/17 12:18> Allergies/Home Meds <Romero Gutierrez - Last Filed: 12/01/17 17:51> <Contreras Blum - Last Filed: 12/02/17 12:18> Allergies/Adverse Reactions: Allergies Penicillins Allergy (Mild, Verified 12/01/17 08:29) RASH Home Medications: Home Meds Medication Instructions Recorded Confirmed risperiDONE [RisperDAL Consta] 50 mg IM Q2W 06/29/17 12/01/17 Review of Systems - Physician Review All systems were reviewed & negative as marked: Yes - Review of Systems Systems not reviewed;Unavailable: Altered Mental Status <Contreras Blum - Last Filed: 12/02/17 12:18> Physical Exam Vital Signs Reviewed: Yes Temperature: Afebrile Blood Pressure: Normal Pulse: Tachycardic Respiratory Rate: Normal Appearance: Positive for: Well-Appearing, Non-Toxic, Comfortable Pain Distress: None Mental Status: Positive for: Alert and Oriented X 3 - Systems Exam Head: Present: Atraumatic, Normocephalic Pupils: Present: PERRL Extroacular Muscles: Present: EOMI Conjunctiva: Present: Normal Mouth: Present: Moist Mucous Membranes Neck: Present: Normal Range of Motion Respiratory/Chest: Present: Clear to Auscultation, Good Air Exchange. No: Respiratory Distress, Accessory Muscle Use Cardiovascular: Present: Regular Rate and Rhythm, Normal S1, S2. No: Murmurs Abdomen: Present: Normal Bowel Sounds. No: Tenderness, Distention, Peritoneal Signs Back: Present: Normal Inspection Upper Extremity: Present: Normal Inspection. No: Cyanosis, Edema Lower Extremity: Present: Normal Inspection. No: Edema Neurological: Present: GCS=15, CN II-XII Intact, Speech Normal, Motor Func Grossly Intact, Other (no focal deficit, does not respond to questions, staring off. ) Skin: Present: Warm, Dry, Normal Color. No: Rashes Psychiatric: Present: Alert, Other (non-verbal) <Contreras Blum - Last Filed: 12/02/17 12:18> Vital Signs Temp Pulse Resp BP Pulse Ox 12/01/17 19:55 98.1 F 90 18 128/75 99 12/01/17 19:00 98.6 F 76 16 115/80 100 12/01/17 17:24 91 H 18 117/72 97 12/01/17 12:52 98.6 F 91 H 18 122/70 97 12/01/17 08:33 99.3 F 102 H 19 121/76 98 Medical Decision Making <Romero Gutierrez - Last Filed: 12/01/17 17:51> <Contreras Blum - Last Filed: 12/02/17 12:18> ED Course and Treatment: 12/01/17 17:51 Patient transferred to [facility] on an involuntary bed (Romero Gutierrez ) 12/01/17 08:52 Impression: will medically clear for pes assessment. Plan: -- Chest X-ray -- EKG -- Labs -- Urinalysis -- Reassess and disposition Prior Visits: Notes and results from previous visits were reviewed. Patient was last seen in the emergency department on 01/12/17 for non- compliance with medication. Progress Notes: EKG reviewed, shows NSR at 99bpm. No ST-segment elevations or depressions. No T -wave inversions 12/01/17 11:35 pt medically cleared for psychiatric admission 12/01/17 11:37 12/01/17 13:55 pt observed taking po in nad. 12/01/17 16:14 [place] [facility] 12/01/17 16:18 pt reassesed: denies any complaints, more responsive, will respond to my questions with yes/no. 12/01/17 16:57 case endorsed to restaurant shift leader, [place] [facility] [place]. accepted to involuntary psych. (Contreras Blum) - Lab Interpretations Lab Results: 12/01/17 08:40 12/01/17 08:40 Lab Results 12/01/17 11:00: Urine Opiates Screen Negative, Urine Methadone Screen Negative, Ur Barbiturates Screen Negative, Ur Phencyclidine Scrn Negative, Ur Amphetamines Screen Negative, U Benzodiazepines Scrn Negative, U Oth Cocaine Metabols Negative, U Cannabinoids Screen Negative 12/01/17 11:00: Urine Color Yellow, Urine Appearance Clear, Urine pH 7.0, Ur Specific [place] 1.010, Urine Protein Negative, Urine Glucose (UA) Negative, Urine Ketones Trace H, Urine Blood Negative, Urine Nitrate Negative, Urine Bilirubin Negative, Urine Urobilinogen 0.2, Ur Leukocyte Esterase Negative 12/01/17 08:40: Alcohol, Quantitative < 10 12/01/17 08:40: Salicylates < 1 L, Acetaminophen < 10.0 L 12/01/17 08:40: Sodium 142, Potassium 3.2 L, Chloride 103, Carbon Dioxide 26, Anion Gap 15, BUN 9, Creatinine 0.8, Est GFR ( Amer) > 60, Est GFR (Non- Af Amer) > 60, Random Glucose 98, Calcium 9.5, Total Bilirubin 0.8, AST 30, ALT 35, Alkaline Phosphatase 51, Total Protein 7.2, Albumin 4.3, Globulin 2.9, Albumin/Globulin Ratio 1.5 12/01/17 08:40: WBC 5.9, RBC 4.72, Hgb 13.4 L, Hct 40.6 L, MCV 86.0, MCH 28.4, MCHC 33.0, RDW 13.5, Plt Count 123, MPV 13.1 H, Gran % 62.3, Lymph % (Auto) 28.2 , [place] % (Auto) 9.0 H, Eos % (Auto) 0.2 L, Baso % (Auto) 0.3, Gran # 3.69, Lymph # (Auto) 1.7, [place] # (Auto) 0.5, Eos # (Auto) 0.0, Baso # (Auto) 0.02 - RAD Interpretation Radiology Orders: 12/01/17 08:42 CXR [CHEST PORTABLE] [RAD] Stat - Medication Orders Current Medication Orders: Discontinued Medications Haloperidol (Haldol) 1 mg PO STAT STA PRN Reason: Protocol Stop: 12/01/17 12:16 Last Admin: 12/01/17 12:52 Dose: 1 mg Lorazepam (Ativan) 1 mg PO STAT STA PRN Reason: Protocol Stop: 12/01/17 12:14 Last Admin: 12/01/17 12:48 Dose: 1 mg Potassium Chloride (K-Dur 20 Meq Er Tab) 40 meq PO STAT STA Stop: 12/01/17 09:35 Last Admin: 12/01/17 09:59 Dose: 40 meq <Romero Gutierrez - Last Filed: 12/01/17 17:51> - Scribe Statement The provider has reviewed the documentation as recorded by the Scribe <Contreras Blum - Last Filed: 12/02/17 12:18> - Scribe Statement Christine Almendarez All medical record entries made by the Scribe were at my direction and personally dictated by me. I have reviewed the chart and agree that the record accurately reflects my personal performance of the history, physical exam, medical decision making, and the department course for this patient. I have also personally directed, reviewed, and agree with the discharge instructions and disposition. (Contreras Blum) Disposition/Present on Arrival - Present on Arrival Any Indicators Present on Arrival: No History of DVT/PE: No History of Uncontrolled Diabetes: No Urinary Catheter: No History of Decub. Ulcer: No - Disposition Have Diagnosis and Disposition been Completed?: Yes Disposition Time: 17:52 Patient Plan: Transfer To [facility]) <Romero Gutierrez - Last Filed: 12/01/17 17:51> - Present on Arrival Any Indicators Present on Arrival: No History of DVT/PE: No History of Uncontrolled Diabetes: No Urinary Catheter: No History of Decub. Ulcer: No History Surgical Site Infection Following: None - Disposition Have Diagnosis and Disposition been Completed?: Yes Disposition Time: 16:58 <Contreras Blum - Last Filed: 12/02/17 12:18> - Disposition Diagnosis: Schizophrenia Disposition: Transfer [facility] [place] Condition: STABLE Referrals: PCP,NO [Non-Staff] - Follow up with primary Forms: [employer] ([place]anian)
[2017-12-01 08:56] LABS: BASO # 0.02 K/mm3 (0.0-2.0); BASO % 0.3 % (0.0-3.0); EOS % 0.2 % (1.5-5.0); GRAN # 3.69 (1.4-6.5); GRAN % 62.3 % (50.0-68.0); HEMOGLOBIN 13.4 g/dL (14.0-18.0); LYMPH # 1.7 (1.2-3.4); LYMPH % 28.2 % (22.0-35.0); MEAN CORPUSCULAR HEMOGLOBIN 28.4 pg (25.0-35.0); MEAN PLATELET VOLUME 13.1 fl (7.0-11.0); MONO # 0.5 (0.1-0.6); RBC 4.72 10^6/uL (3.5-6.1); RED CELL DISTRIBUTION WIDTH 13.5 % (11.5-14.5); WHITE BLOOD COUNT 5.9 10^3/ul (4.5-11.0)
--- NOTE | 2017-12-01 09:08 | RAD ---
HISTORY: pysch COMPARISON: 06/29/2017. FINDINGS: LUNGS: The lungs are clear. PLEURA: No significant pleural effusion identified, no pneumothorax apparent. CARDIOVASCULAR: Normal. OSSEOUS STRUCTURES: No significant abnormalities. VISUALIZED UPPER ABDOMEN: Normal. OTHER FINDINGS: None. IMPRESSION: No active pulmonary disease.
[2017-12-01 09:33] LABS: ALB/GLOB RATIO 1.5 (1.1-1.8); ALBUMIN 4.3 g/dL (3.0-4.8); ALT/SGPT 35 U/L (7-56); AST/SGOT 30 U/L (17-59); BLOOD UREA NITROGEN 9 mg/dL (7-21); CALCIUM 9.5 mg/dL (8.4-10.5); GFR AFRICAN-AMERICAN > 60; GFR NON-AFRICAN AMERICAN > 60
[2017-12-01] MEDS ORDERED: Potassium Chloride 20 mEq ER Tab PO STA (09:34)
[2017-12-01 09:44] LABS: ACETAMINOPHEN < 10.0 ug/ml (10.0-20.0); SALICYLATE < 1 mg/dL (2.0-20.0)
[2017-12-01 11:32] LABS: URINE BILIRUBIN NEGATIVE (NEGATIVE); URINE BLOOD NEGATIVE (NEGATIVE); URINE GLUCOSE (UA) NEGATIVE (NEGATIVE); URINE LEUKOCYTE ESTERASE NEGATIVE Leu/uL (NEGATIVE); URINE NITRATE NEGATIVE (NEGATIVE); URINE PROTEIN NEGATIVE mg/dL (<30 mg/dL); URINE UROBILINOGEN 0.2 E.U./dL (<1 E.U./dL)
[2017-12-01 11:34] LABS: URINE APPEARANCE CLEAR (CLEAR); URINE COLOR YELLOW (YELLOW)
[2017-12-01 12:08] LABS: BARBITURATES, UR NEGATIVE (NEGATIVE); BENZODIAZEPINES, UR NEGATIVE (NEGATIVE); OPIATES, UR NEGATIVE (NEGATIVE); PHENCYCLIDINE, UR NEGATIVE (NEGATIVE)
--- NOTE | 2017-12-01 19:02 | CARD ---
APPROVED REPORT EKG Measurement Heart [id number] <Conclusion> Normal sinus rhythm Possible Left atrial enlargement Left ventricular hypertrophy Abnormal ECG
[2017-12-01 20:04] VITALS: BP 128/75; PULSE 90; RESP 18; TEMP 98.1; O2SAT 99
== END 2017-12-01 19:55 | disposition short-term general hospital (02) ==
LOC: ED 08:17
DX: F20.9 Schizophrenia, unspecified (principal)
CPT/HCPCS: 71045; 80053; 81003; 85025; 90791; 93005; 99285; G0480